=== PATIENT | male | born 1965 | race Asian ===

== ENCOUNTER → 2016-12-17 | Outpatient (CLI) | payer MEDICARE, OTHER ==
[~2016-12-17] MED LIST: E-Z-GAS II EFFERVESCENT PACKET (SODIUM BICARB./CITRIC ACID/SIMETHICONE) As Ordered ONE; E-Z-HD 98% w/w 340GM SUSP BTL As Ordered ONE; E-Z-PAQUE 96% w/w SUSP 176GM BTL As Ordered ONE
--- NOTE | 2016-12-17 15:40 | REP ---
ESOPHAGRAM AIR CONTRAST: The procedure was performed under the direct supervision of Dr. Russell. The images were reviewed with Dr. Russell. A single view PA chest x-ray is submitted as a front desk representative film. There is poor inspiration, otherwise there is no change compared to a previous chest x-ray performed on 10/17/2009. Liquid barium and gas producing granules were given in the erect position as well as liquid barium in the prone oblique positions in order to perform a double contrast esophagram examination. The oral and pharyngeal stages of deglutition are unremarkable. Esophageal transport is prompt and efficient and there is no esophagitis, stricture, mucosal ring, or hiatal hernia. The GE junction is patulous and there is gastroesophageal reflux demonstrated to the level of the thoracic inlet. IMPRESSION: The GE junction is patulous and there is gastroesophageal reflux demonstrated to the level of the thoracic inlet. Otherwise unremarkable double contrast esophagram examination. 49 seconds of fluoroscopic time was utilized for this procedure. Reviewed by DUTCH Cox 12/17/2016 03:56 PEdited and Signed by Yvan Russell MD 12/17/2016 05:28 P
== END ==
LOC: M RAD 09:06
PROVIDERS: ATTEND Physician Assistant Medical
DX: K21.9 Gastro-esophageal reflux disease without esophagitis (principal)

== ENCOUNTER 2017-10-25 07:52 | Day surgery (SDC) | payer OTHER ==
[2017-10-25] MEDS: LR 1,000 ML IV (08:00)
[2017-10-25] MEDS ORDERED: PROPOFOL 500 MG/50 ML VIAL As Ordered (08:48)
[2017-10-25] MEDS ORDERED: LIDOCAINE 2% INJ 100 MG/5 ML SDV (FOR ANES.) As Ordered (09:00)
[2017-10-25] MEDS ORDERED: fentaNYL 100 MCG/2 ML INJECTION (J3010) As Ordered (09:32)
== END 2017-10-25 11:29 | disposition home or self-care (01) ==
LOC: M OPP 07:52
DX: Z12.11 Encounter for screening for malignant neoplasm of colon (principal); D12.7 Benign neoplasm of rectosigmoid junction; K62.1 Rectal polyp; K57.30 Diverticulosis of large intestine without perforation or abscess without bleeding; Z83.71 Family history of colonic polyps; K21.9 Gastro-esophageal reflux disease without esophagitis; E78.00 Pure hypercholesterolemia, unspecified; E11.9 Type 2 diabetes mellitus without complications; R19.7 Diarrhea, unspecified; Z79.899 Other long term (current) drug therapy; Z87.891 Personal history of nicotine dependence
CPT/HCPCS: 45385

== ENCOUNTER 2020-06-06 12:45 | Inpatient (IN) | payer OTHER ==
[~2020-06-06] VITALS: Ht 162.6 cm; Wt 64.9 kg
[~2020-06-06 12:45] MED LIST changes: +ATOR40TA75 PO; +CLAR10CA3 PO; -E-Z-GAS II EFFERVESCENT PACKET (SODIUM BICARB./CITRIC ACID/SIMETHICONE) As Ordered ONE; -E-Z-HD 98% w/w 340GM SUSP BTL As Ordered ONE; -E-Z-PAQUE 96% w/w SUSP 176GM BTL As Ordered ONE
[2020-06-06] MEDS ORDERED: MORPHINE 2 MG/ML 1ML VIAL (J2270) IV ONE (13:45)
[2020-06-06] MEDS ORDERED: ONDANSETRON 4MG/2ML VIAL IV ONE (13:45)
[2020-06-06] MEDS ORDERED: PANTOPRAZOLE 40MG VIAL (C9113 PER 1) IV ONE (13:45)
[2020-06-06 13:49] LABS: BASO % 0.1 % (0.0-1.0); EOS # 0.1 10^3/uL (0.0-0.5); EOS % 0.6 % (0.0-3.0); HEMATOCRIT 49.7 % (42.0-52.0); LYMPH # 1.7 10^3/uL (1.5-5.0); LYMPH % 12.2 % (24.0-44.0); MEAN CORPUSCULAR HEMOGLOBIN 29.1 pg (27.0-33.0); MEAN CORPUSCULAR HGB CONC 32.2 g/dl (32.0-36.5); MEAN CORPUSCULAR VOLUME 90.5 fl (80.0-96.0); MONO # 1.4 10^3/uL (0.0-0.8); MONO % 9.8 % (0.0-5.0); NEUTROPHILS % 76.9 % (36.0-66.0); PLATELET COUNT, AUTOMATED 372 10^3/uL (150-450); RED BLOOD COUNT 5.49 10^6/uL (4.30-6.10); WHITE BLOOD COUNT 14.2 10^3/uL (4.0-10.0)
[2020-06-06 14:16] LABS: BLOOD UREA NITROGEN 15 MG/DL (7-18); CALCIUM LEVEL 9.1 MG/DL (8.5-10.1); CARBON DIOXIDE LEVEL 29 MEQ/L (21-32); CHLORIDE LEVEL 105 MEQ/L (98-107); CREATININE FOR GFR 0.95 MG/DL (0.70-1.30); GLOMERULAR FILTRATION RATE > 60.0 (>56); GLUCOSE, FASTING 100 MG/DL (70-100); POTASSIUM SERUM 4.3 MEQ/L (3.5-5.1); SODIUM LEVEL 138 MEQ/L (136-145)
[2020-06-06 14:17] LABS: ALBUMIN 3.9 GM/DL (3.2-5.2); ALT/SGPT 16 U/L (12-78); AMYLASE 108 U/L (25-115); BILIRUBIN,DIRECT 0.2 MG/DL (0.0-0.2); BILIRUBIN,TOTAL 0.8 MG/DL (0.2-1.0); CK-MB VALUE MASS < 1.0 NG/ML (<3.6); CPK CREATINE PHOSPHOKINASE 88 U/L (39-308); LIPASE 328 U/L (73-393); MB/CK RELATIVE INDEX 1.14 (< OR =4); TOTAL PROTEIN 7.1 GM/DL (6.4-8.2); TROPONIN I < 0.02 NG/ML (< 0.10)
--- NOTE | 2020-06-06 15:05 | REP ---
INDICATION: Abdominal Pain. COMPARISON: None. TECHNIQUE: Three views FINDINGS: Supine and upright views of the abdomen show the intestinal gas pattern to be nonspecific. Gas and stool is seen throughout the colon within the rectosigmoid region. A few gas-filled mildly dilated small bowel loops are present. The organ silhouettes insofar as delineated appear unremarkable. No abdominal calcific densities are seen within the abdomen or pelvis. The accompanying single frontal view of the chest shows no free subdiaphragmatic air, cardiomegaly, infiltrates or effusions. IMPRESSION: Nonspecific intestinal gas pattern. Ileus is suspected, however, early SBO cannot be ruled out. <Electronically signed by Jamshid Mosley > 06/06/20 [id number]
[2020-06-06] MEDS ORDERED: ISOVUE-370 76% 100ML VIAL As Ordered ONE (15:10)
--- NOTE | 2020-06-06 15:33 | REP ---
INDICATION: epigastric/ruq pain, r/o sbo, perforated ulcer. COMPARISON: Comparison CT study is from November 17, 2009.. TECHNIQUE: Helical scanning was acquired and 4 mm axial images are re-formatted. Coronal and sagittal MPR images were generated and reviewed. The contrast enhancement dose is 100 mL of intravenous Isovue 370. FINDINGS: Preliminary digital inspector tester sorter radiograph shows multiple air-filled borderline caliber small bowel loops in the central abdomen. Mild stool is seen in the proximal and distal colon. No colonic distention. Mild ileus pattern. Lung bases are essentially clear on axial images. There is mild diffuse fatty infiltration of the liver with air subtle fat sparing near the gallbladder. No focal liver lesion is seen. The gallbladder itself is distended measuring up to 9.8 cm in greatest diameter. Its wall is slightly thickened. No stone is visible by CT. There is subtle streakiness in the Evita cholecystic fat in the right upper quadrant adjacent to the gallbladder. Question cholecystitis. No abnormality is noted in the pancreas. There is a small descending duodenal diverticulum. The common bile duct is not dilated, 0.6 cm. Normal adrenal glands are seen. The kidneys enhance symmetrically and are morphologically intact. No retroperitoneal mass or adenopathy is observed. There is mild sigmoid colon diverticulosis without CT evidence of diverticulitis. A noninflamed appendix is visible medial and posterior to the cecum. There is calcific material in the lumen of the appendix consistent with an appendicular lith but no periappendiceal inflammation is seen. No free fluid is noted. Seminal vesicles, prostate and urinary bladder are unremarkable. No abdominal wall defect is seen. Bone window settings show no bony destructive lesion. There is a bilateral pars defect in the L5 vertebral body without evidence of spondylolisthesis. IMPRESSION: 1. Fatty infiltration of the liver. 2. Dilated gallbladder with gallbladder wall thickening and minimal Evita cholecystic edema question cholecystitis. 3. Left colonic diverticulosis without CT evidence of diverticulitis. 4. Mild ileus pattern in the bowel gas. No obstructive lesion seen. 5. Incidental finding bilateral pars interarticularis defects at L5 without spondylolisthesis. <Electronically signed by Logan Gómez > 06/06/20 [id number]
[2020-06-06] MEDS ORDERED: PIPERACILLIN/TAZOBACTAM SOD 3.375 GM in D5W MINI-BAG PLUS 50 ML IV ONE (15:45)
[2020-06-06] MEDS ORDERED: OMEP-221 PO (15:45)
[2020-06-06] MEDS ORDERED: FLUTISP NARES (15:52)
[2020-06-06] MEDS ORDERED: ONDANSETRON 4MG/2ML VIAL IV PRN (16:00)
[2020-06-06] MEDS: NS 1,000 ML IV SCH ×2 (16:03→23:59)
--- NOTE | 2020-06-06 16:19 | REP ---
INDICATION: RUQ, epigastric TTP. COMPARISON: Comparison CT1 study November 17, 2009.. TECHNIQUE: Right upper quadrant sonography. FINDINGS: Scanning through the right upper quadrant of the abdomen demonstrates a mildly dilated, 10 cm, thin-walled gallbladder without evidence of stone or polyp. Common bile duct is normal measuring 0.6 cm in greatest diameter. There is evidence of fatty infiltration of the liver with hypoechoic areas of fat sparing near the gallbladder. No focal liver lesion is seen. Liver size is normal. No pancreatic abnormality is observed. No right renal abnormality is seen. There is no evidence of ascites. The right kidney measures 10.5 x 5.5 x 4.4 cm. IMPRESSION: Evidence of fatty infiltration of the liver. Gallbladder mildly dilated. Otherwise negative right upper quadrant sonography.. <Electronically signed by Logan Gómez > 06/06/20 [id number]
--- NOTE | 2020-06-06 16:37 | HPEPDOC ---
[facility] Medical History & Physical Date of Admission Jun 06, 2020 Date of Service: Jun 06, 2020 Attending Physician: Karen Flores MD History and Physical CHIEF COMPLAINT: abdominal pain HISTORY OF PRESENT ILLNESS: Patient is a 55 y/o M with PMH Of GERD, HLD who presented to [facility] with chief complaint of worsening abdominal pain over the past 7 days. The patient speaks Czech and wished to have his friend on the phone to help translate during his bedside exam. Patient states that 7 days ago he developed acute epigastric and right upper quadrant pain. It initially was i ntermittent, 5 out of 10 on pain scale, sharp. Over the 7 days it continued to worsen. He had seen his primary care provider on 05/27/2020 and was prescribed omeprazole for what was thought to be acid reflux pain. He states the pain did not improve after taking omeprazole but instead it worsened. The patient denies nausea, vomiting, diarrhea, shortness of breath, chest pain, fevers, chills. Due to unrelenting and worsening pain the patient came to the emergency room today for further evaluation. In the emergency room, vital signs showed some mild tachycardia. WBC 14K, he had severe tenderness on epigastric palpation, + Howell's sign. CT abd/pelvis showed fatty infiltration of the liver, dilated gallbladder with gallbladder wall thickening and minimal Evita cholecystic edema question cholecystitis. left colonic diverticulosis without CT evidence of diverticulitis, mild ileus pattern in the bowel gas. No obstructive lesion seen. Last BM was several days ago. Surgery was called from ER and decision was made to admit under medicine service for acute cholecystitis and treat with antibiotics. REVIEW OF SYSTEMS: CONSTITUTIONAL: Denies lack of energy, unexplained weight gain or weight loss, loss of appetite, fever, night sweats EYES: Denies eye drainage, eye pain, visual changes, dry/irritated eye EARS, NOSE, MOUTH, THROAT: Denies difficulty hearing, ringing in ears, mouth sores, loose teeth, sore throat, facial numbness or pain NECK: Denies swollen glands CARDIOVASCULAR: Denies irregular heartbeat, racing heart, chest pains, swelling of feet or legs, pain in legs with walking RESPIRATORY: Denies shortness of breath, night sweats, wheezing, sputum production, oxygen at home, coughing up blood, cough lasting > 1 month GASTROINTESTINAL: Denies constipation, bloody stool, diarrhea, heartburn, nausea, vomiting GENITOURINARY: Denies painful urination, bloody urine, frequent urination, urgency, leaking urine, impotence MUSCULOSKELETAL: Denies joint pain, muscle pain, leg swelling INTEGUMENTARY: Denies rash, itching, new skin lesion, change in existing skin lesion, hair loss or increase, breast changes. NEUROLOGICAL: Denies headaches, dizziness, difficulty walking, numbness or tingling PSYCHIATRIC: Denies depression, anxiety, recurrent bad thoughts, mood swings, hallucinations PAST MEDICAL HISTORY: 1. GERD 2. HLD 3. Environmental allergies PAST SURGICAL HISTORY: 1. Nose surgery 2. Eye surgery FAMILY HISTORY: No significant family history SOCIAL HISTORY: Hx of tobacco use in past. Denies currently using tobacco products, alcohol or drug use. He is a full Code. ALLERGIES: Please see below. HOME MEDICATIONS: Please see below. PHYSICAL EXAMINATION: VS: Please see below CONSTITUTIONAL: Mild discomfort, AAO x 3 EYES: PERRLA, EOM intact HENT, MOUTH: Normocephalic, atraumatic, moist mucous membranes, NECK: SUPPLE, no JVD, no lymphadenopathy, no carotid bruit CV: Regular rate and rhythm, S1S2 normal, no murmurs/rubs/gallops RESPIRATORY: Clear to auscultation bilaterally, no rales/rhonchi/wheezes GI: + Howell's sign, epigastric pain on palpation, BS positive in 4 quadrants, soft, nondistended, no rebound or guarding, no organomegaly : Deferred MUSCULOSKELETAL: Normal ROM. No cyanosis, clubbing, swelling, joint deformity, extremity edema INTEGUMENTARY: Intact, no rashes, no lesions, no erythema NEUROLOGIC: Cranial Nerves II-XII are intact, no focal deficits PSYCHIATRIC: Mood and affect are normal LABORATORY DATA: Please see below IMAGING: CT abd/pelvis: 1. Fatty infiltration of the liver. 2. Dilated gallbladder with gallbladder wall thickening and minimal Evita cholecystic edema question cholecystitis. 3. Left colonic diverticulosis without CT evidence of diverticulitis. 4. Mild ileus pattern in the bowel gas. No obstructive lesion seen. 5. Incidental finding bilateral pars interarticularis defects at L5 without spondylolisthesis. ASSESSMENT: 55 y/o M with PMH Of GERD, HLD admitted for further treatment of acute cholecystitis. PLAN: #Acute cholecystitis -CT abd/pelvis above -WBC 14K, afebrile, tender in epigastric/RUQ -NPO, IVFs, pain control with toradol, morphine. -Surgery consulted to follow -F/u CMP in AM #HLD -Holding PO statin #GERD -IV PPI #DVT px -Enoxaparin DISPOSITION: Admitted for treatment above. Surgery consulted. Plan is discharge home when medically improved. Vital Signs Vital Signs Date Time Temp Pulse Resp B/P (MAP) Pulse Ox O2 Delivery O2 Flow Rate FiO2 06/06/20 15:42 98.9 97 18 138/96 (110) 99 Room Air Laboratory Data Labs 24H Laboratory Tests 2 06/06/20 13:39: Immature Granulocyte % (Auto) 0.4, Neutrophils (%) (Auto) 76.9H, Lymphocytes (%) (Auto) 12.2L, Monocytes (%) (Auto) 9.8H, Eosinophils (%) (Auto) 0.6, Basophils (%) (Auto) 0.1, Neutrophils # (Auto) 11.0H, Lymphocytes # (Auto) 1.7, Monocytes # (Auto) 1.4H, Eosinophils # (Auto) 0.1, Basophils # (Auto) 0.0, Nucleated Red Blood Cells % (auto) 0.0, Anion Gap 4L, Glomerular Filtration Rate > 60.0, Calcium Level 9.1, Total Bilirubin 0.8, Direct Bilirubin 0.2, Aspartate Amino Transf (AST/SGOT) 19, Alanine Aminotransferase (ALT/SGPT) 16, Alkaline Phosphatase 79, Total Creatine Kinase 88, Creatine Kinase MB < 1.0, Creatine Kinase MB Relative Index 1.14, Troponin I < 0.02, Total Protein 7.1, Albumin 3.9, Albumin/Globulin Ratio 1.2, Amylase Level 108, Lipase 328 06/06/20 14:16: Urine Color YELLOW, Urine Appearance CLEAR, Urine pH 5.0, Urine Specific [place] 1.021, Urine Protein NEGATIVE, Urine Glucose (UA) NEGATIVE, Urine Ketones NEGATIVE, Urine Blood NEGATIVE, Urine Nitrite NEGATIVE, Urine Bilirubin NEGATIVE, Urine Urobilinogen 0.2, Urine Leukocyte Esterase NEGATIVE, Urine WBC (Auto) 2, Urine RBC (Auto) 1, Urine Hyaline Casts (Auto) 0, Urine Bacteria (Auto) NEGATIVE, Urine Squamous Epithelial Cells 0, Urine Mucus (Auto) SMALL, Urine Sperm (Auto) CBC/BMP Laboratory Tests 06/06/20 13:39 Home Medications Scheduled Atorvastatin Calcium (Atorvastatin Calcium) 40 Mg Tab, 40 MG PO DAILY PRESCRIBED BY DR. FU BUT PT STATES NOT TAKING Omeprazole (Omeprazole) 40 Mg Capsule.dr, 40 MG PO DAILY Scheduled PRN Fluticasone Propionate (Fluticasone Propionate) 16 Gm [place].susp, 1 SPRAY NARES DAILY PRN for CONGESTION Loratadine (Claritin) 10 Mg Cap, 10 MG PO DAILY PRN for ALLERGY SYMPTOMS Allergies Uncoded Allergies: ANTIBIOTIC IN [facility] (Allergy, Severe, BLISTERS ON HANDS, 10/17/17) A-FIB/CHADSVASC A-FIB History Current/History of A-Fib/PAF?: No Current PO Anticoag Therapy: No Age/Risk Factor Scoring CHADSVASC: CHADSVASC Response (Comments) Value Age Risk Factor Age < 65 years old 0 Gender Risk Factor Male 0 Hx of CHF No 0 Hx of HTN No 0 Hx of Stroke/TIA/or VTE No 0 Hx of Diabetes No 0 Hx of Vascular Disease No 0 Total 0 Treatment Treatment ordered: Other Other anticoagulant ordered: enoxaparin Karen Flores MD Jun 06, 2020 16:37
[2020-06-06] MEDS: MORPHINE 2 MG/ML 1ML VIAL (J2270) IV PRN (18:38)
[2020-06-06 18:48] VITALS: BP 154/108
[2020-06-06] MEDS: KETOROLAC 30 MG/ML 1ML VIAL IV PRN (19:05)
[2020-06-06 19:57] VITALS: BP 118/75
[2020-06-06 22:00] VITALS: BP 115/75
[2020-06-06] MEDS: PIPERACILLIN/TAZOBACTAM SOD 3.375 GM in D5W MINI-BAG PLUS 50 ML IV SCH (23:59)
[2020-06-07] VITALS (10 sets, daily range): BP systolic 111–140; BP diastolic 73–99
[2020-06-07] MEDS: MORPHINE 2 MG/ML 1ML VIAL (J2270) IV PRN ×3 (00:40→22:35)
[2020-06-07] MEDS: PIPERACILLIN/TAZOBACTAM SOD 3.375 GM in D5W MINI-BAG PLUS 50 ML IV SCH ×4 (03:22→22:33)
[2020-06-07 05:55] LABS: HEMATOCRIT 41.3 % (42.0-52.0); MEAN CORPUSCULAR HGB CONC 33.2 g/dl (32.0-36.5); MEAN CORPUSCULAR VOLUME 90.6 fl (80.0-96.0); PLATELET COUNT, AUTOMATED 296 10^3/uL (150-450); RED BLOOD COUNT 4.56 10^6/uL (4.30-6.10); WHITE BLOOD COUNT 9.6 10^3/uL (4.0-10.0)
[2020-06-07 06:10] LABS: HEMOGLOBIN 13.7 g/dl (13.5-17.5)
[2020-06-07 06:34] LABS: ALBUMIN 2.9 GM/DL (3.2-5.2); ALT/SGPT 23 U/L (12-78); BLOOD UREA NITROGEN 11 MG/DL (7-18); CALCIUM LEVEL 8.7 MG/DL (8.5-10.1); CARBON DIOXIDE LEVEL 27 MEQ/L (21-32); CHLORIDE LEVEL 109 MEQ/L (98-107); CREATININE FOR GFR 0.94 MG/DL (0.70-1.30); GLOMERULAR FILTRATION RATE > 60.0 (>56); GLUCOSE, FASTING 99 MG/DL (70-100); POTASSIUM SERUM 3.8 MEQ/L (3.5-5.1); SODIUM LEVEL 140 MEQ/L (136-145); TOTAL PROTEIN 6.2 GM/DL (6.4-8.2)
--- NOTE | 2020-06-07 06:46 | ECGEPIP ---
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
[2020-06-07] MEDS ORDERED: MIDAZOLAM INJ 2MG/2ML VIAL (J2250 PER 1MG) As Ordered ONE (07:15)
[2020-06-07] MEDS ORDERED: ROCURONIUM BROMIDE 50 MG/5 ML VIAL As Ordered ONE ×2 (07:15→12:31)
[2020-06-07] MEDS ORDERED: LIDOCAINE 2% 100MG/5ML SDV (FOR ANES.) As Ordered ONE (07:15)
[2020-06-07] MEDS ORDERED: propofoL 200 MG/20 ML VIAL As Ordered ONE (07:15)
[2020-06-07] MEDS ORDERED: fentaNYL 250 MCG/5 ML INJECTION (J3010) As Ordered ONE (07:15)
[2020-06-07] MEDS ORDERED: KETOROLAC 60MG 2ML VIAL As Ordered ONE (07:16)
[2020-06-07] MEDS ORDERED: ONDANSETRON 4MG/2ML VIAL As Ordered ONE (07:16)
[2020-06-07] MEDS ORDERED: ACETAMINOPHEN 1000MG 100ML IV BTL (OFIRMEV) (J0131 PER 10MG) As Ordered ONE (07:16)
[2020-06-07] MEDS ORDERED: dexameTHASONE 4 MG/ML 1ML VIAL (J1100 PER 1MG) As Ordered ONE (07:16)
[2020-06-07] MEDS ORDERED: BUPIVACAINE HCL 0.25% 10ML VIAL As Ordered ONE (07:53)
[2020-06-07] MEDS ORDERED: LIDOCAINE 1% MDV 20ML VIAL As Ordered ONE (07:53)
[2020-06-07] MEDS: ENOXAPARIN 40MG/0.4ML SYRINGE (J1650 PER 10MG) SC SCH (09:00)
[2020-06-07] MEDS: NS 1,000 ML IV SCH ×3 (10:01→22:32)
--- NOTE | 2020-06-07 11:30 | CR.PDOC ---
General Surgery Consultation Date of Consultation 06/07/20 History and Physical CONSULT REPORT FOR: Dr. Flores (hospitalist service) REASON FOR CONSULTATION: abdominal pain HISTORY OF PRESENT ILLNESS: patient is a 55-year-old male who presented himself to the emergency room yesterday afternoon with complaints of 1 week history of epigastric pain with radiation to the right upper quadrant area with some associated nausea, increased reflux, minimal vomiting. He denies any fevers or chills. He reports he is been ongoing for 7 days but worse in the past day or so prompting his consult to the emergency room. About a month ago he was having the same symptoms and he was started on omeprazole which he has been taking all this time. During that time his symptoms resolved after about a week or so on this medication. He reports a history of ulcer. On review of [facility] he did have an endoscopy back in 2012 or that shows some gastritis. A repeat endoscopy in 2018 did not reveal any active disease in the esophagus, stomach, duodenum. Because of his history is hard to elicit due to him not being able to speak Spanish fluently. This history was taken with the help of the electronic certified court interpreter service. He reports along with the pain he seems to be describing symptoms of increased reflux worse with suite foods, not with salty foods and this improved with the omeprazole. As mentioned he has had an endoscopy and colonoscopy in 2018. His symptoms did not really bother him up until about a month ago and repeated again about this week. In the emergency room he had multiple imaging studies to look at the gallbladder. Initial ultrasound study was read as normal but the CT scan study shows some mild inflammation around the gallbladder though no stones were seen on ultrasound of the gallbladder. He had some mild leukocytosis but normal LFTs. His symptoms are more prominent over the epigastric area than on the right upper quadrant. Though there is some radiation of the discomfort on examination. He was noted to have positive sonographic Howell sign during ultrasound examination. All this points out the possible gallbladder etiology. He was started on IV antibiotics and this morning repeat labs shows normalization of his leukocytosis and still a normal LFT. I was asked to evaluate the patient for possibility that this is a gallbladder disease/chronic cholecystitis and need for cholecystectomy. PAST MEDICAL HISTORY: 1. hyperlipidemia 2. GERD PAST SURGICAL HISTORY: INCLUDES: 1. nose surgery 2. eye surgery 3. EGD/Colonoscopy (2018) ALLERGIES: Please see below. HOME MEDICATIONS: Please see below. REVIEW OF SYSTEMS: Denies any abnormal weight loss, fevers, chills. Reports esophageal reflux. Denies problem with vision or hearing, chest pains, shortness of breath. Denies dysuria, hematuria. EXAMINATION: looks comfortable anicteric sclerae no JVD Regular heart rate and rhythm Clear Breath sounds abdomen: nondistended, soft, tender at epigastric area with radiation to the ruq area, mild guarding more on the epigastric area than ruq area. Nontender over left side of abdomen. ANCILLARIES: LABORATORY DATA: Please see below. IMAGING STUDIES: GB US - no stones CT A/P - mild gb wall thickening, pericholecystic fluid IMPRESSION AND PLAN: Acute Cholecystitis Details of his history was hard to ascertain but it seems to be he may be having possibly 2 separate problems one is that of of dyspeptic type symptoms with reflux disease which seems to have improved with omeprazole. If symptoms clear whether the pain or discomfort he is having right now for about 7 days is similar to his previous ones. He denies dizziness when I asked him. He is most tender over the epigastric area. He does have some mild radiation over the right upper quadrant area. He has had at least 4 to past 2 years an EGD and colo noscopy which was normal. He had a prior EGD years ago that showed some mild gastritis so he must be having some symptoms as he has had this procedures done. Studies done in the emergency room shows a distended gallbladder but no stones were visualized on ultrasound, normal biliary tree. On CT which was done later there is now some mild pericholecystic edema which is more specific for acute cholecystitis. He did come in with mild leukocytosis. His LFTs were normal. Even the pain mostly is at the epigastric area, I had them repeat the LFTs today and this still is normal which can essentially rules out some lower biliary tract obstruction. His repeat labs shows normalization of the leukocytosis with the antibiotics which goes more for acute cholecystitis. I discussed with him his options which includes continued antibiotic therapy and consideration for interval cholecystectomy versus performing cholecystectomy during this admission and after explaining the differences, risks and benefits of each one he has agreed to undergo cholecystectomy during this admission. I discussed with the patient the details of the proposed procedure, the benefits of performing the procedure, the most common risks on doing the procedure. This may include risks of bleeding, infection, bile duct injury, bile leakage,. I have given him a chance to ask questions, voice out concerns. Patient has agreed to proceed Vital Signs Vital Signs Date Time Temp Pulse Resp B/P (MAP) Pulse Ox O2 Delivery O2 Flow Rate FiO2 06/07/20 10:01 16 06/07/20 06:00 98.5 88 111/73 (86) 96 Room Air I&Os I&O- Last 24 Hours up to 6 AM 06/07/20 06:00 Intake Total 1650 ml Output Total 150 ml Balance 1500 ml Laboratory Data Labs 24H Laboratory Tests 2 06/06/20 13:39: Immature Granulocyte % (Auto) 0.4, Neutrophils (%) (Auto) 76.9H, Lymphocytes (%) (Auto) 12.2L, Monocytes (%) (Auto) 9.8H, Eosinophils (%) (Auto) 0.6, Basophils (%) (Auto) 0.1, Neutrophils # (Auto) 11.0H, Lymphocytes # (Auto) 1.7, Monocytes # (Auto) 1.4H, Eosinophils # (Auto) 0.1, Basophils # (Auto) 0.0, Nucleated Red Blood Cells % (auto) 0.0, Anion Gap 4L, Glomerular Filtration Rate > 60.0, Calcium Level 9.1, Total Bilirubin 0.8, Direct Bilirubin 0.2, Aspartate Amino Transf (AST/SGOT) 19, Alanine Aminotransferase (ALT/SGPT) 16, Alkaline Phosphatase 79, Total Creatine Kinase 88, Creatine Kinase MB < 1.0, Creatine Kinase MB Relative Index 1.14, Troponin I < 0.02, Total Protein 7.1, Albumin 3.9, Albumin/Globulin Ratio 1.2, Amylase Level 108, Lipase 328 06/06/20 14:16: Urine Color YELLOW, Urine Appearance CLEAR, Urine pH 5.0, Urine Specific [place] 1.021, Urine Protein NEGATIVE, Urine Glucose (UA) NEGATIVE, Urine Ketones NEGATIVE, Urine Blood NEGATIVE, Urine Nitrite NEGATIVE, Urine Bilirubin NEGATIVE, Urine Urobilinogen 0.2, Urine Leukocyte Esterase NEGATIVE, Urine WBC (Auto) 2, Urine RBC (Auto) 1, Urine Hyaline Casts (Auto) 0, Urine Bacteria (Aut o) NEGATIVE, Urine Squamous Epithelial Cells 0, Urine Mucus (Auto) SMALL, Urine Sperm (Auto) 06/06/20 23:50: Coronavirus (COVID-19)(PCR) NEGATIVE 06/07/20 05:21: Nucleated Red Blood Cells % (auto) 0.0, Anion Gap 4L, Glomerular Filtration Rate > 60.0, Calcium Level 8.7, Total Bilirubin 1.0, Aspartate Amino Transf (AST/SGOT) 28, Alanine Aminotransferase (ALT/SGPT) 23, Alkaline Phosphatase 75, Total Protein 6.2L, Albumin 2.9#L, Albumin/Globulin Ratio 0.9 CBC/BMP Laboratory Tests 06/06/20 13:39 06/07/20 05:21 Home Medications Scheduled Atorvastatin Calcium (Atorvastatin Calcium) 40 Mg Tab, 40 MG PO DAILY, (Reported) PRESCRIBED BY DR. FU BUT PT STATES NOT TAKING Omeprazole (Omeprazole) 40 Mg Capsule.dr, 40 MG PO DAILY, (Reported) Scheduled PRN Fluticasone Propionate (Fluticasone Propionate) 16 Gm [place].susp, 1 SPRAY NARES DAILY PRN for CONGESTION, (Reported) Loratadine (Claritin) 10 Mg Cap, 10 MG PO DAILY PRN for ALLERGY SYMPTOMS, (Reported) Allergies Uncoded Allergies: ANTIBIOTIC IN [facility] (Allergy, Severe, BLISTERS ON HANDS, 10/17/17) NESTOR CONKLIN MD Jun 07, 2020 11:30
[2020-06-07] MEDS ORDERED: PHENYLephrine HCL 500 MCG/5 ML (100MCG/ML) SYRINGE (J2370) As Ordered ONE (12:03)
[2020-06-07] MEDS ORDERED: SUGAMMADEX SODIUM 500 MG/5 ML VIAL (BRIDION) As Ordered ONE (12:30)
[2020-06-07] MEDS ORDERED: FLUTICASONE PROP 0.05% NASAL SPRAY 16 GM (FLONASE) NARES PRN (14:00)
[2020-06-07] MEDS ORDERED: LORATADINE 10 MG TAB PO PRN (14:00)
[2020-06-07] MEDS ORDERED: fentaNYL 100 MCG/2 ML INJECTION (J3010) IV PRN (14:30)
[2020-06-07] MEDS ORDERED: oxyCODONE 5MG TAB PO PRN (14:30)
[2020-06-07] MEDS ORDERED: ONDANSETRON 4MG/2ML VIAL IV PRN (14:30)
[2020-06-07] MEDS ORDERED: HYDROMORPHONE HCL 0.5 MG/ 0.5 ML SYRINGE (J1170 PER 1) IV PRN (14:30)
[2020-06-07] MEDS ORDERED: LR 1,000 ML IV SCH (14:30)
[2020-06-07] MEDS ORDERED: METOCLOPRAMIDE INJ 10MG/2ML VIAL (J2765 PER 1) IV PRN (14:30)
[2020-06-07] MEDS: PANTOPRAZOLE 40MG VIAL (C9113 PER 1) IV SCH (15:09)
--- NOTE | 2020-06-07 17:08 | IPNPDOC ---
Date Seen The patient was seen on 06/07/20. Progress Note SUBJECTIVE: Continues to have epigastric/ruq pain. OR today for cholecystectomy. OBJECTIVE: PHYSICAL EXAMINATION: VS: Please see below CONSTITUTIONAL: resting in bed, AAO x 3 EYES: PERRLA, EOM intact HENT, MOUTH: Normocephalic, atraumatic, moist mucous membranes, NECK: SUPPLE, no JVD, no lymphadenopathy, no carotid bruit CV: Regular rate and rhythm, S1S2 normal, no murmurs/rubs/gallops RESPIRATORY: Clear to auscultation bilaterally, no rales/rhonchi/wheezes GI: + Howell's sign, epigastric pain on palpation, BS positive in 4 quadrants, soft, nondistended, no rebound or guarding, no organomegaly : Deferred MUSCULOSKELETAL: Normal ROM. No cyanosis, clubbing, swelling, joint deformity, extremity edema INTEGUMENTARY: Intact, no rashes, no lesions, no erythema NEUROLOGIC: Cranial Nerves II-XII are intact, no focal deficits PSYCHIATRIC: Mood and affect are normal LABORATORY DATA: Please see below IMAGING: CT abd/pelvis: 1. Fatty infiltration of the liver. 2. Dilated gallbladder with gallbladder wall thickening and minimal Evita cholecystic edema question cholecystitis. 3. Left colonic diverticulosis without CT evidence of diverticulitis. 4. Mild ileus pattern in the bowel gas. No obstructive lesion seen. 5. Incidental finding bilateral pars interarticularis defects at L5 without spondylolisthesis. ASSESSMENT: 55 y/o M with PMH Of GERD, HLD admitted for further treatment of acute cholecystitis. PLAN: #Acute cholecystitis -CT abd/pelvis above -WBC 9.6K, afebrile, tender in epigastric/RUQ -NPO, IVFs, pain control with toradol, morphine. -Surgery to take to OR today for cholecystectomy #HLD -Holding PO statin #GERD -IV PPI #DVT px -Enoxaparin DISPOSITION: OR today. Plan is discharge home when medically improved. VS, I&O, 24H, Fishbone Vital Signs/I&O Vital Signs Date Time Temp Pulse Resp B/P (MAP) Pulse Ox O2 Delivery O2 Flow Rate FiO2 06/07/20 16:38 98.6 114/78 (90) Room Air 06/07/20 15:40 88 16 95 I&O- Last 24 Hours up to 6 AM 06/07/20 06:00 Intake Total 1650 ml Output Total 150 ml Balance 1500 ml Laboratory Data 24H LABS Laboratory Tests 2 06/06/20 23:50: Coronavirus (COVID-19)(PCR) NEGATIVE 06/07/20 05:21: Nucleated Red Blood Cells % (auto) 0.0, Anion Gap 4L, Glomerular Filtration Rate > 60.0, Calcium Level 8.7, Total Bilirubin 1.0, Aspartate Amino Transf (AST/SGOT) 28, Alanine Aminotransferase (ALT/SGPT) 23, Alkaline Phosphatase 75, Total Protein 6.2L, Albumin 2.9#L, Albumin/Globulin Ratio 0.9 CBC/BMP Laboratory Tests 06/07/20 05:21 Current Medications Current Medications Medications (Trade) Dose Ordered Sig/Mauricio Route PRN Reason Start Time Stop Time Status Last Admin Dose Admin Atorvastatin Calcium (Lipitor) 40 mg DAILY PO 06/08/20 09:00 Enoxaparin Sodium (Lovenox) 40 mg DAILY SC 06/07/20 09:00 Fentanyl Citrate (Sublimaze) 25 mcg Q5MP PRN IV PAIN LEVEL 5-10 06/07/20 14:30 06/07/20 15:30 DC Fluticasone Propionate (Flonase 0.05% Nasal [place]) 1 spray DAILY PRN NARES CONGESTION 06/07/20 14:00 Home Med (Med Rec Complete!) ASDIRECTED XX 06/06/20 16:30 06/06/20 16:27 DC Hydromorphone HCl (Dilaudid) 0.4 mg Q5MP PRN IV PAIN LEVEL 4-7 06/07/20 14:30 06/07/20 15:30 DC Influenza Virus Vaccine (Flublok Quad(Egg-Free)18y&Older Influenza) 0.5 ml ASDIRECTED IM 06/08/20 09:00 Ketorolac Tromethamine (ToRADol) 15 mg Q6H PRN IV PAIN 06/06/20 16:00 06/11/20 15:59 06/06/20 19:05 Lactated Ringer's 1,000 ml @ 100 mls/hr Q10H IV 06/07/20 14:30 06/07/20 15:30 DC Loratadine (Claritin) 10 mg DAILY PRN PO ALLERGY SYMPTOMS 06/07/20 14:00 Metoclopramide HCl (REGLAN INJection) 10 mg Q6HP PRN IV NAUSEA OR VOMITING 06/07/20 14:30 06/07/20 15:30 DC Morphine Sulfate (Morphine Sulfate Inj) 1 mg Q6H PRN IV SEVERE PAIN (PS 8-10) 06/06/20 16:00 06/07/20 10:01 Ondansetron HCl (ZOFRAN INJection) 4 mg Q4HP PRN IV NAUSEA OR VOMITING 06/06/20 16:00 Ondansetron HCl (ZOFRAN INJection) 4 mg Q4HP PRN IV NAUSEA OR VOMITING 06/07/20 14:30 06/07/20 15:30 DC Oxycodone HCl (Roxicodone, Oxyir) 5 mg ASDIRECTED PRN PO PAIN LEVEL 1-4 06/07/20 14:30 06/07/20 15:30 DC Pantoprazole Sodium (Protonix) 40 mg Q24H IV 06/07/20 14:00 06/07/20 15:09 Piperacillin Sod/ Tazobactam Sod 3.375 gm/Dextrose 50 ml @ 50 mls/hr Q6H IV 06/06/20 22:00 06/07/20 16:23 Sodium Chloride 1,000 ml @ 125 mls/hr Q8H IV 06/06/20 15:50 06/07/20 16:24 Allergies Uncoded Allergies: ANTIBIOTIC IN [facility] (Allergy, Severe, BLISTERS ON HANDS, 10/17/17) Karen Flores MD Jun 07, 2020 17:08
[2020-06-07] MEDS: KETOROLAC 30 MG/ML 1ML VIAL IV PRN (18:36)
[2020-06-07] MEDS ORDERED: PERCOCET 5MG/325MG TAB PO PRN (23:30)
[2020-06-07] MEDS: ACETAMINOPHEN TAB 650MG DOSE (2X325MG) PO PRN (23:52)
[2020-06-08] MEDS: PERCOCET 5MG/325MG TAB PO PRN ×2 (00:07→08:37)
[2020-06-08] MEDS: PIPERACILLIN/TAZOBACTAM SOD 3.375 GM in D5W MINI-BAG PLUS 50 ML IV SCH ×4 (03:59→21:45)
[2020-06-08 06:00] VITALS: BP 104/74
[2020-06-08 07:06] LABS: HEMATOCRIT 37.7 % (42.0-52.0); HEMOGLOBIN 12.3 g/dl (13.5-17.5); MEAN CORPUSCULAR HEMOGLOBIN 29.4 pg (27.0-33.0); MEAN CORPUSCULAR HGB CONC 32.6 g/dl (32.0-36.5); MEAN CORPUSCULAR VOLUME 90.2 fl (80.0-96.0); PLATELET COUNT, AUTOMATED 252 10^3/uL (150-450); RED BLOOD COUNT 4.18 10^6/uL (4.30-6.10); WHITE BLOOD COUNT 9.5 10^3/uL (4.0-10.0)
[2020-06-08 07:37] LABS: ALBUMIN 2.5 GM/DL (3.2-5.2); ALT/SGPT 45 U/L (12-78); BLOOD UREA NITROGEN 10 MG/DL (7-18); CALCIUM LEVEL 7.5 MG/DL (8.5-10.1); CARBON DIOXIDE LEVEL 25 MEQ/L (21-32); CHLORIDE LEVEL 109 MEQ/L (98-107); CREATININE FOR GFR 0.87 MG/DL (0.70-1.30); GLOMERULAR FILTRATION RATE > 60.0 (>56); GLUCOSE, FASTING 90 MG/DL (70-100); POTASSIUM SERUM 3.8 MEQ/L (3.5-5.1); SODIUM LEVEL 141 MEQ/L (136-145)
[2020-06-08] MEDS: NS 1,000 ML IV SCH (08:32)
[2020-06-08] MEDS: ATORVASTATIN 20 MG TAB PO SCH (08:33)
[2020-06-08] MEDS: ENOXAPARIN 40MG/0.4ML SYRINGE (J1650 PER 10MG) SC SCH (08:33)
[2020-06-08] MEDS ORDERED: FLUBLOK(EGG FREE)(QUAD)INFLUENZA VACC 0.5ML SYRINGE 18YRS & OLDER IM SCH (09:00)
[2020-06-08 10:00] VITALS: BP 101/68
[2020-06-08 14:00] VITALS: BP 101/70
[2020-06-08] MEDS: PANTOPRAZOLE 40MG VIAL (C9113 PER 1) IV SCH (14:14)
[2020-06-08] MEDS: ACETAMINOPHEN TAB 650MG DOSE (2X325MG) PO PRN ×2 (15:46→21:51)
--- NOTE | 2020-06-08 16:02 | IPNPDOC ---
Date Seen The patient was seen on 06/08/20. Progress Note SUBJECTIVE: POD 1 for cholecystectomy. Mod epigastric/ruq pain controlled with pain medication. Spiked fever overnight of 100.5-102.5, has been afebrile throughout day today. Blood cultures ordered, encouraged to use IS Q2H while awake. Denies incr SOB, fevers, chills, n/v/d. Tolerating diet well. OBJECTIVE: PHYSICAL EXAMINATION: VS: Please see below CONSTITUTIONAL: resting in bed, AAO x 3 EYES: PERRLA, EOM intact HENT, MOUTH: Normocephalic, atraumatic, moist mucous membranes, NECK: SUPPLE, no JVD, no lymphadenopathy, no carotid bruit CV: Regular rate and rhythm, S1S2 normal, no murmurs/rubs/gallops RESPIRATORY: Clear to auscultation bilaterally, no rales/rhonchi/wheezes GI: Multiple clean incisions of the abdomen, no increased erythema. Diffuse tenderness, mod (5/10 on pain scale), BS positive in 4 quadrants, soft, nondistended, no rebound or guarding, no organomegaly : Deferred MUSCULOSKELETAL: Normal ROM. No cyanosis, clubbing, swelling, joint deformity, extremity edema INTEGUMENTARY: Intact, no rashes, no lesions, no erythema NEUROLOGIC: Cranial Nerves II-XII are intact, no focal deficits PSYCHIATRIC: Mood and affect are normal LABORATORY DATA: Please see below IMAGING: CT abd/pelvis: 1. Fatty infiltration of the liver. 2. Dilated gallbladder with gallbladder wall thickening and minimal Evita cholecystic edema question cholecystitis. 3. Left colonic diverticulosis without CT evidence of diverticulitis. 4. Mild ileus pattern in the bowel gas. No obstructive lesion seen. 5. Incidental finding bilateral pars interarticularis defects at L5 without spondylolisthesis. ASSESSMENT: 55 y/o M with PMH Of GERD, HLD admitted for further treatment of acute cholecystitis. PLAN: #Acute cholecystitis -POD day 1 cholecystectomy -Fevers overnight, blood cultures pending. Cannot r/o atelectasis also postop, IS ordered -WBC wnl, tender in abdomen -F/u blood cultures -Tolerating regular diet, pain control with toradol, morphine, NS at 100 cc/hr, zosyn IV -Surgery following #HLD -C/w PO statin #GERD - PPI #DVT px -Enoxaparin DISPOSITION: Plan is discharge home when medically improved. VS, I&O, 24H, Fishbone Vital Signs/I&O Vital Signs Date Time Temp Pulse Resp B/P (MAP) Pulse Ox O2 Delivery O2 Flow Rate FiO2 06/08/20 14:00 98.0 107 19 101/70 (80) 98 Room Air I&O- Last 24 Hours up to 6 AM 06/08/20 06:00 Intake Total 3680 ml Output Total 735 ml Balance 2945 ml Laboratory Data 24H LABS Laboratory Tests 2 06/08/20 06:50: Nucleated Red Blood Cells % (auto) 0.0, Anion Gap 7L, Glomerular Filtration Rate > 60.0, Calcium Level 7.5L, Total Bilirubin 1.0, Aspartate Amino Transf (AST/SGOT) 49H, Alanine Aminotransferase (ALT/SGPT) 45, Alkaline Phosphatase 97, Total Protein 5.0L, Albumin 2.5L, Albumin/Globulin Ratio 1.0 CBC/BMP Laboratory Tests 06/08/20 06:50 Current Medications Current Medications Medications (Trade) Dose Ordered Sig/Mauricio Route PRN Reason Start Time Stop Time Status Last Admin Dose Admin Acetaminophen (Tylenol Tab) 650 mg Q4HP PRN PO PAIN OR FEVER 06/07/20 23:30 06/08/20 15:46 Atorvastatin Calcium (Lipitor) 40 mg DAILY PO 06/08/20 09:00 06/08/20 08:33 Enoxaparin Sodium (Lovenox) 40 mg DAILY SC 06/07/20 09:00 06/08/20 08:33 Fentanyl Citrate (Sublimaze) 25 mcg Q5MP PRN IV PAIN LEVEL 5-10 06/07/20 14:30 06/07/20 15:30 DC Fluticasone Propionate (Flonase 0.05% Nasal [place]) 1 spray DAILY PRN NARES CONGESTION 06/07/20 14:00 Home Med (Med Rec Complete!) ASDIRECTED XX 06/06/20 16:30 06/06/20 16:27 DC Hydromorphone HCl (Dilaudid) 0.4 mg Q5MP PRN IV PAIN LEVEL 4-7 06/07/20 14:30 06/07/20 15:30 DC Influenza Virus Vaccine (Flublok Quad(Egg-Free)18y&Older Influenza) 0.5 ml ASDIRECTED IM 06/08/20 09:00 06/08/20 08:39 Ketorolac Tromethamine (ToRADol) 15 mg Q6H PRN IV PAIN 06/06/20 16:00 06/11/20 15:59 06/07/20 18:36 Lactated Ringer's 1,000 ml @ 100 mls/hr Q10H IV 06/07/20 14:30 06/07/20 15:30 DC Loratadine (Claritin) 10 mg DAILY PRN PO ALLERGY SYMPTOMS 06/07/20 14:00 Metoclopramide HCl (REGLAN INJection) 10 mg Q6HP PRN IV NAUSEA OR VOMITING 06/07/20 14:30 06/07/20 15:30 DC Morphine Sulfate (Morphine Sulfate Inj) 1 mg Q6H PRN IV SEVERE PAIN (PS 8-10) 06/06/20 16:00 06/07/20 22:35 Ondansetron HCl (ZOFRAN INJection) 4 mg Q4HP PRN IV NAUSEA OR VOMITING 06/06/20 16:00 Ondansetron HCl (ZOFRAN INJection) 4 mg Q4HP PRN IV NAUSEA OR VOMITING 06/07/20 14:30 06/07/20 15:30 DC Oxycodone HCl (Roxicodone, Oxyir) 5 mg ASDIRECTED PRN PO PAIN LEVEL 1-4 06/07/20 14:30 06/07/20 15:30 DC Oxycodone/ Acetaminophen (Percocet 5mg/ 325mg Tablet) 1 tab Q4HP PRN PO MODERATE PAIN (PS 5-7) 06/07/20 23:30 06/08/20 08:37 Oxycodone/ Acetaminophen (Percocet 5mg/ 325mg Tablet) 2 tab Q6HP PRN PO SEVERE PAIN (PS 8-10) 06/07/20 23:30 Pantoprazole Sodium (Protonix) 40 mg Q24H IV 06/07/20 14:00 06/08/20 14:14 Piperacillin Sod/ Tazobactam Sod 3.375 gm/Dextrose 50 ml @ 50 mls/hr Q6H IV 06/06/20 22:00 06/08/20 15:52 Sodium Chloride 1,000 ml @ 125 mls/hr Q8H IV 06/06/20 15:50 12/6/20 08:32 Allergies Uncoded Allergies: ANTIBIOTIC IN [facility] (Allergy, Severe, BLISTERS ON HANDS, 10/17/17) Karen Flores MD Jun 08, 2020 16:02
[2020-06-08] MEDS: MAALOX 30 ML SUSP *UDC PO PRN (21:44)
[2020-06-08 22:00] VITALS: BP 142/90
[2020-06-09] MEDS: PIPERACILLIN/TAZOBACTAM SOD 3.375 GM in D5W MINI-BAG PLUS 50 ML IV SCH ×4 (04:21→21:43)
[2020-06-09 05:58] LABS: HEMATOCRIT 37.4 % (42.0-52.0); HEMOGLOBIN 12.3 g/dl (13.5-17.5); MEAN CORPUSCULAR HEMOGLOBIN 29.4 pg (27.0-33.0); MEAN CORPUSCULAR HGB CONC 32.9 g/dl (32.0-36.5); MEAN CORPUSCULAR VOLUME 89.3 fl (80.0-96.0); PLATELET COUNT, AUTOMATED 242 10^3/uL (150-450); RED BLOOD COUNT 4.19 10^6/uL (4.30-6.10); WHITE BLOOD COUNT 8.5 10^3/uL (4.0-10.0)
[2020-06-09 06:00] VITALS: BP 130/90
[2020-06-09 06:29] LABS: ALBUMIN 2.4 GM/DL (3.2-5.2); ALT/SGPT 32 U/L (12-78); BILIRUBIN,TOTAL 0.7 MG/DL (0.2-1.0); BLOOD UREA NITROGEN 6 MG/DL (7-18); CALCIUM LEVEL 8.6 MG/DL (8.5-10.1); CARBON DIOXIDE LEVEL 26 MEQ/L (21-32); CHLORIDE LEVEL 107 MEQ/L (98-107); CREATININE FOR GFR 0.81 MG/DL (0.70-1.30); GLOMERULAR FILTRATION RATE > 60.0 (>56); GLUCOSE, FASTING 99 MG/DL (70-100); POTASSIUM SERUM 3.4 MEQ/L (3.5-5.1); SODIUM LEVEL 138 MEQ/L (136-145)
[2020-06-09] MEDS: OMEPRAZOLE 20 MG CAP PO SCH (09:08)
[2020-06-09] MEDS: ENOXAPARIN 40MG/0.4ML SYRINGE (J1650 PER 10MG) SC SCH (09:08)
[2020-06-09] MEDS: ATORVASTATIN 20 MG TAB PO SCH (09:08)
--- NOTE | 2020-06-09 12:32 | ROOPDOC ---
[facility] Report Of Operation Report of Operation DATE OF PROCEDURE: 06/07/20 PREPROCEDURE DIAGNOSES: acute cholecystitis. POSTPROCEDURE DIAGNOSES: acute cholecystitis. PROCEDURE: Robotic assisted laparoscopic cholecystectomy. SURGEON: Nestor Neville MD MACHINE TANK OPERATOR: ANESTHESIA: General Anesthesia. ESTIMATED BLOOD LOSS: Approximately 10 mL. COMPLICATIONS: none. REMARKS: Tensely distended, inotropic gallbladder with thickened gallbladder wall, pericholecystic wall edema consistent with acute over chronic cholecystitis.. SPECIMEN: gallbladder DESCRIPTION OF PROCEDURE: Patient is receiving zosyn 3.375 gm IV q 6h for acute cholecystitis. He was brought to the operating room, laid supine on the table, compression boots placed for DVT prophylaxis. General endotracheal anesthesia started. His abdomen then prepped and draped in usual sterile fashion. Surgical timeout was performed prior to confirm right procedure, right patient identification and other necessary information prior to starting surgery. Entry into the abdomen done through an incision aslightly to the left of the umbilical cleft. A Veress needle was inserted with a controlled fashion. CO2 insufflation started to pressure 15 mmHg. Using the same incision an 8 mm robotic trochar was placed under direct vision laparoscope. The area underneath the insertion site was inspected and no injury found. He was then placed in steep reverse Trendelenburg. His right side was tilted up to further expose the gallbladder. Under direct vision 3 more 8 mm trochars were placed along a row at level to the camera port site at the anterior axillary line, right midclavicular line and left mid clavicular line. A transversus abdominis plane block was then performed bilaterally using the lidocaine/marcaine mixture under laparoscopic guidance. The da Dharmesh robot tower was then maneuvered in place and the trochar ds docked to the robot. I used a prograsp, forced bipolar, and hook cautery for the procedure with a 30 robotic camera. I unscrubbed and assumed control of the camera and instruments at the surgeon's console. Operative findings: His liver is noted to be smooth in contour, mildly fatty replaced. The gallbladder was tensely distended which needed to be decompressed. Mucoid nonb ilious fluid was aspirated consistent with hydrops of the gallbladder. Moderate acute pericholecystic wall edema is noted. The gallbladder seems to be chronically thickened consistent with chronic cholecystitis. The omental adhesions were lysed with cautery to expose the gallbladder. The fundus of the gallbladder was grasped and the gallbladder is elevated superiorly exposing the neck of the gallbladder. The peritoneum overlying the area is opened up and dissected free both anteriorly and posteriorly to help with retraction of the gallbladder. The hepatocystic lymph node was visualized and I was able to peel this away from the course of the cystic artery. The course of the cystic artery was likewise identified and was able to peel this off the wall of the gallbladder creating a window around it. I was then able to continue the posterior dissection rectal polyp at the neck of the gallbladder connecting both my medial and lateral dissection. This allowed me to get around the cystic duct as it exits the infundibulum of the gallbladder. I continued the circumferential dissection inferiorly. I was palpating at the cystic duct as this seems to be somewhat distended but I could not feel any stones lodged at the neck nor at the cystic duct. I continued posterior dissection proximally at the neck of gallbladder to dissect the posterior wall of the gallbladder off the liver plate until a critical view of safety was achieved whereby only the previously identified duct and artery coursing through the neck the gallbladde r(photodocumentation done.) At this point the the cystic artery was most accessible and this was clipped 2 times and divided in between the hemlock clips. After again checking his anatomy and verifying no stones within the cystic duct and its junction with the gallbladder I divided this with 2 clips remaining at the cystic duct stump, one at the gb side.. The rest of the gallbladder was then dissected free of the gallbladder bed using Bovie cautery. There is a small posterior branch of the cystic artery laterally that I had to cauterize. I had spillage of this mucoid contents as I was dissecting the gallbladder at about the infundibulum. There were no stone spillage in fact I did not see any big stones within the gallbladder. The gallbladder was then placed in an Endo Catch bag and retrieved outside through the right axillary port site with partial enlargement of the port site by my printer assistant to accomodate the gallbladder. The clips and liver bed was inspected for bleeding and bile leakage and none found. I thoroughly irrigated the gallbladder bed as well as around the liver until we had clear returns. I scrubbed back in, extracted the gallbladder and close to the right axillary port site using a Rafi Lundberg device with 0 Vicryl stitch. The abdomen was deflated, The trochars undocked, the robot removed from the field. Rest of the skin incisions closed with 4-0 Monocryl in subcuticular fashion. Dermabond placed to cover the incisions.. Patient was awakened, extubated and brought to recovery room stable. . NESTOR NEVILLE MD Jun 09, 2020 12:32
[2020-06-09 14:00] VITALS: BP 130/95
--- NOTE | 2020-06-09 18:03 | IPNPDOC ---
Date Seen The patient was seen on 06/09/20. Progress Note SUBJECTIVE: POD 2 for cholecystectomy. Mod epigastric pain controlled with pain medication. Spiked fevers again overnight of overnight of 100.1-100.7. Has been afebrile throughout day today. Blood culture x 1 NG; however, second set pending. Encouraged to use IS Q2H while awake. Denies incr SOB, fevers, chills, n/v/d. Tolerating diet well. OBJECTIVE: PHYSICAL EXAMINATION: VS: Please see below CONSTITUTIONAL: resting in bed, AAO x 3 EYES: PERRLA, EOM intact HENT, MOUTH: Normocephalic, atraumatic, moist mucous membranes, NECK: SUPPLE, no JVD, no lymphadenopathy, no carotid bruit CV: Regular rate and rhythm, S1S2 normal, no murmurs/rubs/gallops RESPIRATORY: Clear to auscultation bilaterally, no rales/rhonchi/wheezes GI: Multiple clean incisions of the abdomen, no increased erythema. Tenderness over epigastric area mod (5/10 on pain scale), BS positive in 4 quadrants, soft, nondistended, no rebound or guarding, no organomegaly : Deferred MUSCULOSKELETAL: Normal ROM. No cyanosis, clubbing, swelling, joint deformity, extremity edema INTEGUMENTARY: Intact, no rashes, no lesions, no erythema NEUROLOGIC: Cranial Nerves II-XII are intact, no focal deficits PSYCHIATRIC: Mood and affect are normal LABORATORY DATA: Please see below IMAGING: CT abd/pelvis: 1. Fatty infiltration of the liver. 2. Dilated gallbladder with gallbladder wall thickening and minimal Evita cho lecystic edema question cholecystitis. 3. Left colonic diverticulosis without CT evidence of diverticulitis. 4. Mild ileus pattern in the bowel gas. No obstructive lesion seen. 5. Incidental finding bilateral pars interarticularis defects at L5 without spondylolisthesis. ASSESSMENT: 55 y/o M with PMH Of GERD, HLD admitted for further treatment of acute cholecystitis. PLAN: #Acute cholecystitis -POD day 2 cholecystectomy -Fevers overnight again, cannot r/o atelectasis also postop, IS ordered -WBC wnl, tender in epigastric area -BCx x 1 set NG, second set pending -Tolerating regular diet, pain control with toradol, morphine, zosyn IV -Surgery (Dr. Neville) following #HLD -C/w PO statin #GERD - PPI #DVT px -Enoxaparin DISPOSITION: Plan is discharge home when medically improved. Patient's brother, Kvng, would like to be called for update prior to discharge if possible . He helps translate for patient also. VS, I&O, 24H, Fishbone Vital Signs/I&O Vital Signs Date Time Temp Pulse Resp B/P (MAP) Pulse Ox O2 Delivery O2 Flow Rate FiO2 06/09/20 14:00 98.5 101 18 130/95 (107) 95 Room Air I&O- Last 24 Hours up to 6 AM 06/09/20 06:00 Intake Total 1880 ml Output Total 600 ml Balance 1280 ml Laboratory Data 24H LABS Laboratory Tests 2 06/09/20 05:39: Nucleated Red Blood Cells % (auto) 0.0, Anion Gap 5L, Glomerular Filtration Rate > 60.0, Calcium Level 8.6, Total Bilirubin 0.7, Aspartate Amino Transf (AST/SGOT) 24, Alanine Aminotransferase (ALT/SGPT) 32, Alkaline Phosphatase 89, Total Protein 6.0L, Albumin 2.4L, Albumin/Globulin Ratio 0.7 CBC/BMP Laboratory Tests 06/09/20 05:39 Microbiology Microbiology 06/08/20 Blood Culture, Received Pending 06/08/20 Blood Culture - Preliminary, Resulted No growth after 24 hours . All specim... Current Medications Current Medications Medications (Trade) Dose Ordered Sig/Mauricio Route PRN Reason Start Time Stop Time Status Last Admin Dose Admin Acetaminophen (Tylenol Tab) 650 mg Q4HP PRN PO PAIN OR FEVER 06/07/20 23:30 06/08/20 21:51 Al Hydrox/Mg Hydrox/Simethicone (Mylanta) 30 ml Q6HP PRN PO HEARTBURN 06/08/20 20:15 06/08/20 21:44 Atorvastatin Calcium (Lipitor) 40 mg DAILY PO 06/08/20 09:00 06/09/20 09:08 Enoxaparin Sodium (Lovenox) 40 mg DAILY SC 06/07/20 09:00 06/09/20 09:08 Fentanyl Citrate (Sublimaze) 25 mcg Q5MP PRN IV PAIN LEVEL 5-10 06/07/20 14:30 06/07/20 15:30 DC Fluticasone Propionate (Flonase 0.05% Nasal [place]) 1 spray DAILY PRN NARES CONGESTION 06/07/20 14:00 Home Med (Med Rec Complete!) ASDIRECTED XX 06/06/20 16:30 06/06/20 16:27 DC Hydromorphone HCl (Dilaudid) 0.4 mg Q5MP PRN IV PAIN LEVEL 4-7 06/07/20 14:30 06/07/20 15:30 DC Influenza Virus Vaccine (Flublok Quad(Egg-Free)18y&Older Influenza) 0.5 ml ASDIRECTED IM 06/08/20 09:00 06/08/20 08:39 Ketorolac Tromethamine (ToRADol) 15 mg Q6H PRN IV PAIN 06/06/20 16:00 06/11/20 15:59 06/07/20 18:36 Lactated Ringer's 1,000 ml @ 100 mls/hr Q10H IV 06/07/20 14:30 06/07/20 15:30 DC Loratadine (Claritin) 10 mg DAILY PRN PO ALLERGY SYMPTOMS 06/07/20 14:00 Metoclopramide HCl (REGLAN INJection) 10 mg Q6HP PRN IV NAUSEA OR VOMITING 06/07/20 14:30 06/07/20 15:30 DC Morphine Sulfate (Morphine Sulfate Inj) 1 mg Q6H PRN IV SEVERE PAIN (PS 8-10) 06/06/20 16:00 06/07/20 22:35 Omeprazole (PriLOSEC) 40 mg DAILY PO 06/09/20 09:00 06/09/20 09:08 Ondansetron HCl (ZOFRAN INJection) 4 mg Q4HP PRN IV NAUSEA OR VOMITING 06/06/20 16:00 Ondansetron HCl (ZOFRAN INJection) 4 mg Q4HP PRN IV NAUSEA OR VOMITING 06/07/20 14:30 06/07/20 15:30 DC Oxycodone HCl (Roxicodone, Oxyir) 5 mg ASDIRECTED PRN PO PAIN LEVEL 1-4 06/07/20 14:30 06/07/20 15:30 DC Oxycodone/ Acetaminophen (Percocet 5mg/ 325mg Tablet) 1 tab Q4HP PRN PO MODERATE PAIN (PS 5-7) 06/07/20 23:30 06/08/20 08:37 Oxycodone/ Acetaminophen (Percocet 5mg/ 325mg Tablet) 2 tab Q6HP PRN PO SEVERE PAIN (PS 8-10) 06/07/20 23:30 Pantoprazole Sodium (Protonix) 40 mg Q24H IV 06/07/20 14:00 06/08/20 16:04 DC 06/08/20 14:14 Piperacillin Sod/ Tazobactam Sod 3.375 gm/Dextrose 50 ml @ 50 mls/hr Q6H IV 06/06/20 22:00 06/09/20 16:36 Sodium Chloride 1,000 ml @ 125 mls/hr Q8H IV 06/06/20 15:50 06/08/20 16:14 DC 06/08/20 08:32 Allergies Uncoded Allergies: ANTIBIOTIC IN [facility] (Allergy, Severe, BLISTERS ON HANDS, 10/17/17) Karen Flores MD Jun 09, 2020 18:03
[2020-06-09] MEDS ORDERED: RAMELTEON 8 MG TAB (ROZEREM) PO PRN (21:00)
[2020-06-09 22:00] VITALS: BP 119/98
[2020-06-10] MEDS: PIPERACILLIN/TAZOBACTAM SOD 3.375 GM in D5W MINI-BAG PLUS 50 ML IV SCH ×4 (03:35→23:05)
[2020-06-10 06:00] VITALS: BP 117/95
[2020-06-10 07:44] LABS: HEMOGLOBIN 13.2 g/dl (13.5-17.5); MEAN CORPUSCULAR HEMOGLOBIN 29.5 pg (27.0-33.0); MEAN CORPUSCULAR VOLUME 89.5 fl (80.0-96.0); PLATELET COUNT, AUTOMATED 287 10^3/uL (150-450); RED BLOOD COUNT 4.47 10^6/uL (4.30-6.10)
--- NOTE | 2020-06-10 07:50 | IPNPDOC ---
Text Note Date of Service The patient was seen on 06/09/20. NOTE Patient seen and examined. Lays flat on the bed. Reports pain about 3 out of 10 mainly at the epigastric area. He is tolerating regular food without nausea or vomiting. He still has some intermittent low-grade fever. On examination Patient looks comfortable, in no acute distress Skin is warm and dry. No signs of jaundice Anicteric sclerae lips appear moist Lung sounds are clear to auscultation bilaterally, no wheezing Heart rate and rhythm are regular without murmurs. Abdomen is minimally distended, slightly tympanitic to percussion. He still has some persistent mild point tenderness over the epigastric area, nondistended right upper quadrant area. Port sites are clean dry and intact. The right side anterior axillary port site which is extraction site has mild swelling, signs of hematoma, no active drainage. This area is also mildly tender on palpation. Impression and plan Acute cholecystitis status post laparoscopic cholecystectomy. He is postop day 2. He does not have any leukocytosis. His LFTs are normal. He has this persistent tenderness over the epigastric area which I could not fully explain. He also has some low-grade intermittent fever. Continued antibiotics. If he develops leukocytosis or his fever persist, I suggest repeating a CT to look for any undrained collection which may be precipitating the fever. If that is negative may need to look for other sources of fever including repeat of the Covid test. VS,Fishbone, I+O VS, Fishbone, I+O Laboratory Tests 06/10/20 06:35 Vital Signs Date Time Temp Pulse Resp B/P (MAP) Pulse Ox O2 Delivery O2 Flow Rate FiO2 06/10/20 06:00 98.6 85 20 117/95 (102) 95 06/09/20 14:00 Room Air I&O- Last 24 Hours up to 6 AM 06/10/20 06:00 Intake Total 1360 ml Balance 1360 ml NESTOR CONKLIN MD Jun 10, 2020 07:50
[2020-06-10 07:56] LABS: ALBUMIN 2.7 GM/DL (3.2-5.2); ALT/SGPT 32 U/L (12-78); BILIRUBIN,TOTAL 0.5 MG/DL (0.2-1.0); BLOOD UREA NITROGEN 9 MG/DL (7-18); CALCIUM LEVEL 8.5 MG/DL (8.5-10.1); CARBON DIOXIDE LEVEL 27 MEQ/L (21-32); CHLORIDE LEVEL 107 MEQ/L (98-107); CREATININE FOR GFR 0.83 MG/DL (0.70-1.30); GLOMERULAR FILTRATION RATE > 60.0 (>56); GLUCOSE, FASTING 99 MG/DL (70-100); POTASSIUM SERUM 3.8 MEQ/L (3.5-5.1); SODIUM LEVEL 140 MEQ/L (136-145)
[2020-06-10] MEDS: ATORVASTATIN 20 MG TAB PO SCH (09:53)
[2020-06-10] MEDS: OMEPRAZOLE 20 MG CAP PO SCH (09:53)
[2020-06-10] MEDS: ENOXAPARIN 40MG/0.4ML SYRINGE (J1650 PER 10MG) SC SCH (09:54)
[2020-06-10] MEDS: MAALOX 30 ML SUSP *UDC PO PRN (10:05)
--- NOTE | 2020-06-10 12:39 | IPNPDOC ---
Text Note Date of Service The patient was seen on 06/10/20. NOTE SUBJECTIVE: -POD 3 s/p cholecystectomy. -Reports some improvement in his epigastric pain -Afebrile -Denies incr SOB, fevers, chills, n/v/d. Tolerating diet well. OBJECTIVE: PHYSICAL EXAMINATION: VS: Please see below CONSTITUTIONAL: resting in bed, AAO x 3 EYES: PERRLA, EOM intact HENT, MOUTH: Normocephalic, atraumatic, moist mucous membranes, NECK: SUPPLE, no JVD, no lymphadenopathy, no carotid bruit CV: Regular rate and rhythm, S1S2 normal, no murmurs/rubs/gallops RESPIRATORY: Clear to auscultation bilaterally, no rales/rhonchi/wheezes GI: Multiple clean incisions of the abdomen, no increased erythema. Tenderness over epigastric area mod (2/10 on pain scale), BS positive in 4 quadrants, soft, nondistended, no rebound or guarding, no organomegaly : Deferred MUSCULOSKELETAL: Normal ROM. No cyanosis, clubbing, swelling, joint deformity, extremity edema INTEGUMENTARY: Intact, no rashes, no lesions, no erythema NEUROLOGIC: Cranial Nerves II-XII are intact, no focal deficits PSYCHIATRIC: Mood and affect are normal LABORATORY DATA: WBC 8 Hgb 13.2 platelets 287 na 140 K 3.8 Cr 0.83 IMAGING: CT abd/pelvis: 1. Fatty infiltration of the liver. 2. Dilated gallbladder with gallbladder wall thickening and minimal Evita cholecystic edema question cholecystitis. 3. Left colonic diverticulosis without CT evidence of diverticulitis. 4. Mild ileus pattern in the bowel gas. No obstructive lesion seen. 5. Incidental finding bilateral pars interarticularis defects at L5 without spondylolisthesis. ASSESSMENT: 55 y/o M with PMH Of GERD, HLD admitted for acute cholecystitis now s/p cholecystectomy. PLAN: #Acute cholecystitis -POD day 3 cholecystectomy -Afebrile over the last 24h, continue monitoring, if febrile, per surgery, to reimage abdomen -WBC wnl, improved tenderness in epigastric area -BCx x 2 NGTD -Tolerating regular diet, pain control with toradol, morphine, zosyn IV day 4 -Surgery (Dr. Neville) following #HLD -C/w PO statin #GERD - PPI #DVT px -Enoxaparin DISPOSITION: Plan is discharge home when medically improved. Updated gerri Calderoner, . VS,Fishbone, I+O VS, Fishbone, I+O Laboratory Tests 06/10/20 06:35 Vital Signs Date Time Temp Pulse Resp B/P (MAP) Pulse Ox O2 Delivery O2 Flow Rate FiO2 06/10/20 06:00 98.6 85 20 117/95 (102) 95 06/09/20 14:00 Room Air I&O- Last 24 Hours up to 6 AM 06/10/20 06:00 Intake Total 1360 ml Balance 1360 ml ERIN DINERO MD Jun 10, 2020 12:39
[2020-06-10 14:00] VITALS: BP 120/91
[2020-06-11] MEDS: PIPERACILLIN/TAZOBACTAM SOD 3.375 GM in D5W MINI-BAG PLUS 50 ML IV SCH ×2 (04:23→09:09)
[2020-06-11 06:00] VITALS: BP 121/83
[2020-06-11] MEDS: ENOXAPARIN 40MG/0.4ML SYRINGE (J1650 PER 10MG) SC SCH (09:09)
[2020-06-11] MEDS: OMEPRAZOLE 20 MG CAP PO SCH (09:09)
[2020-06-11] MEDS: ATORVASTATIN 20 MG TAB PO SCH (09:09)
[2020-06-11 10:08] LABS: HEMATOCRIT 42.9 % (42.0-52.0); HEMOGLOBIN 13.6 g/dl (13.5-17.5); MEAN CORPUSCULAR HGB CONC 31.7 g/dl (32.0-36.5); MEAN CORPUSCULAR VOLUME 88.3 fl (80.0-96.0); PLATELET COUNT, AUTOMATED 318 10^3/uL (150-450); RED BLOOD COUNT 4.86 10^6/uL (4.30-6.10); WHITE BLOOD COUNT 7.2 10^3/uL (4.0-10.0)
--- NOTE | 2020-06-11 10:15 | DS.PDOC ---
Discharge Summary General Date of Admission Jun 06, 2020 at 15:50 Date of Discharge 06/11/2020 Attending Physician: ERIN DINERO MD Discharge Summary PROCEDURES PERFORMED DURING STAY: Cholecystectomy ADMITTING DIAGNOSES: 1. Acute cholecystitis DISCHARGE DIAGNOSES: 1. Acute cholecystitis 2. GERD 3. HLD COMPLICATIONS/CHIEF COMPLAINT: Acute Cholecystitis. HISTORY OF PRESENT ILLNESS: 55-year-old M who presented ED reporting 1 week history of epigastric pain with radiation to the right upper quadrant with associated nausea and vomiting without fevers or chills. HOSPITAL COURSE: In the ED, he was hemodynamically stable and afebrile and studies found leukocytosis, abdominal ultrasound study was read as normal but the CT A/P showed some mild inflammation around the gallbladder though no stones were noted on ultrasound of the gallbladder with normal LFTs. He did have a +Howell's sign and was started on IV zosyn and surgery was consulted. On day 2 of admission his leukocytosis improved and LFTs remained wnl and on discussion with surgery the decision was made to pursue a cholecystectomy that he had on 06/07. Post op he did well with some persisting RUQ and epigastric pain that eventually improved, had low grade fevers that eventually resolved and he tolerated a regular diet. He is now being discharged home with 3 days of cipro to complete a 7d course of antibiotics and will follow up with Dr. Neville in surgery clinic within 2 weeks as well as as his PCP. DISCHARGE MEDICATIONS: Please see below. ALLERGIES: Please see below. PHYSICAL EXAMINATION ON DISCHARGE: VITAL SIGNS: Please see below. CONSTITUTIONAL: resting sitting up in bed, AAO x 3 EYES: PERRLA, EOM intact HENT, MOUTH: Normocephalic, atraumatic, moist mucous membranes, NECK: SUPPLE, no JVD, no lymphadenopathy, no carotid bruit CV: Regular rate and rhythm, S1S2 normal, no murmurs/rubs/gallops RESPIRATORY: Clear to auscultation bilaterally, no rales/rhonchi/wheezes GI: Multiple clean incisions of the abdomen, no increased erythema. Mild TTP over epigastric area, BS positive in 4 quadrants, soft, nondistended, no rebound or guarding, no organomegaly MUSCULOSKELETAL: Normal ROM. No cyanosis, clubbing, swelling, joint deformity, extremity edema INTEGUMENTARY: Intact, no rashes, no lesions, no erythema NEUROLOGIC: Cranial Nerves II-XII are intact, no focal deficits PSYCHIATRIC: Mood and affect are normal LABORATORY DATA: Please see below. IMAGING: CT abd/pelvis: 1. Fatty infiltration of the liver. 2. Dilated gallbladder with gallbladder wall thickening and minimal Evita cholecystic edema question cholecystitis. 3. Left colonic diverticulosis without CT evidence of diverticulitis. 4. Mild ileus pattern in the bowel gas. No obstructive lesion seen. 5. Incidental finding bilateral pars interarticularis defects at L5 without spondylolisthesis. Gallbladder US: Scanning through the right upper quadrant of the abdomen demonstrates a mildly dilated, 10 cm, thin-walled gallbladder without evidence of stone or polyp. Common bile duct is normal measuring 0.6 cm in greatest diameter. There is evidence of fatty infiltration of the liver with hypoechoic areas of fat sparing near the gallblad kathy. No focal liver lesion is seen. Liver size is normal. No pancreatic abnormality is observed. No right renal abnormality is seen. There is no evidence of ascites. The right kidney measures 10.5 x 5.5 x 4.4 cm. IMPRESSION: Evidence of fatty infiltration of the liver. Gallbladder mildly dilated. Otherwise negative right upper quadrant sonography.. AXR: Supine and upright views of the abdomen show the intestinal gas pattern to be nonspecific. Gas and stool is seen throughout the colon within the rectosigmoid region. A few gas-filled mildly dilated small bowel loops are present. The organ silhouettes insofar as delineated appear unremarkable. No abdominal calcific densities are seen within the abdomen or pelvis. The accompanying single frontal view of the chest shows no free subdiaphragmatic air, cardiomegaly, infiltrates or effusions. IMPRESSION: Nonspecific intestinal gas pattern. Ileus is suspected, however, early SBO cannot be ruled out. PROGNOSIS: Good ACTIVITY: As tolerated DIET: Regular DISCHARGE PLAN: Home with 3d of BID cipro and follow up with surgery within 2 weeks and PCP within 1 week. DISPOSITION: Home DISCHARGE INSTRUCTIONS: Home with 3d of BID cipro and follow up with surgery within 2 weeks and PCP within 1 week. ITEMS TO FOLLOWUP ON ON OUTPATIENT: Acute cholecystitis s/p cholecystectomy DISCHARGE CONDITION: Stable TIME SPENT ON DISCHARGE: 47 minutes. Vital Signs/I&Os Vital Signs Date Time Temp Pulse Resp B/P (MAP) Pulse Ox O2 Delivery O2 Flow Rate FiO2 06/11/20 06:00 97.4 85 18 121/83 (96) 97 06/10/20 14:00 Room Air I&O- Last 24 Hours up to 6 AM 06/11/20 06:00 Intake Total 1300 ml Balance 1300 ml Laboratory Data CBC/BMP Microbiology Microbiology 06/08/20 Blood Culture - Preliminary, Resulted No Growth after 48 hours. All Specime... 06/08/20 Blood Culture - Preliminary, Resulted No Growth after 48 hours. All Specime... Discharge Medications Scheduled Atorvastatin Calcium (Atorvastatin Calcium) 40 Mg Tab, 40 MG PO DAILY, (Reported) PRESCRIBED BY DR. FU BUT PT STATES NOT TAKING Omeprazole (Omeprazole) 40 Mg Capsule.dr, 40 MG PO DAILY, (Reported) Scheduled PRN Fluticasone Propionate (Fluticasone Propionate) 16 Gm [place].susp, 1 SPRAY NARES DAILY PRN for CONGESTION, (Reported) Loratadine (Claritin) 10 Mg Cap, 10 MG PO DAILY PRN for ALLERGY SYMPTOMS, (Reported) Allergies Uncoded Allergies: ANTIBIOTIC IN [facility] (Allergy, Severe, BLISTERS ON HANDS, 10/17/17) ERNI DINERO MD Jun 11, 2020 10:15
[2020-06-11] MEDS ORDERED: CIPR-249 PO (10:19)
[2020-06-11] MEDS ORDERED: ACET1TAB55 PO (10:19)
[2020-06-11 10:47] LABS: BLOOD UREA NITROGEN 11 MG/DL (7-18); CALCIUM LEVEL 9.1 MG/DL (8.5-10.1); CARBON DIOXIDE LEVEL 26 MEQ/L (21-32); CHLORIDE LEVEL 105 MEQ/L (98-107); CREATININE FOR GFR 0.78 MG/DL (0.70-1.30); GLOMERULAR FILTRATION RATE > 60.0 (>56); GLUCOSE, FASTING 101 MG/DL (70-100); POTASSIUM SERUM 4.1 MEQ/L (3.5-5.1); SODIUM LEVEL 138 MEQ/L (136-145)
--- NOTE | 2020-06-11 15:48 | IPNPDOC ---
Text Note Date of Service The patient was seen on 06/11/20. NOTE SUBJECTIVE: -POD 4 s/p cholecystectomy. -Reports mild epigastric pain, much improved -Afebrile -Denies incr SOB, fevers, chills, n/v/d. Tolerating diet well. OBJECTIVE: PHYSICAL EXAMINATION: VS: Please see below CONSTITUTIONAL: resting in bed, AAO x 3 EYES: PERRLA, EOM intact HENT, MOUTH: Normocephalic, atraumatic, moist mucous membranes, NECK: SUPPLE, no JVD, no lymphadenopathy, no carotid bruit CV: Regular rate and rhythm, S1S2 normal, no murmurs/rubs/gallops RESPIRATORY: Clear to auscultation bilaterally, no rales/rhonchi/wheezes GI: Multiple clean incisions of the abdomen, no increased erythema. Mild tenderness over epigastric area, BS positive in 4 quadrants, soft, nondistended, no rebound or guarding, no organomegaly : Deferred MUSCULOSKELETAL: Normal ROM. No cyanosis, clubbing, swelling, joint deformity, extremity edema INTEGUMENTARY: Intact, no rashes, no lesions, no erythema NEUROLOGIC: Cranial Nerves II-XII are intact, no focal deficits PSYCHIATRIC: Mood and affect are normal LABORATORY DATA: Reviewed. pending AM labs IMAGING: CT abd/pelvis: 1. Fatty infiltration of the liver. 2. Dilated gallbladder with gallbladder wall thickening and minimal Evita cholecystic edema question cholecystitis. 3. Left colonic diverticulosis without CT evidence of diverticulitis. 4. Mild ileus pattern in the bowel gas. No obstructive lesion seen. 5. Incidental finding bilateral pars interarticularis defects at L5 without spondylolisthesis. ASSESSMENT: 55 y/o M with PMH Of GERD, HLD admitted for acute cholecystitis now s/p cholecystectomy. PLAN: #Acute cholecystitis -POD day 4 cholecystectomy -Afebrile over the last 48h, continue monitoring, if febrile, per surgery, to reimage abdomen -WBC wnl, improved tenderness in epigastric area -BCx x 2 NGTD -Tolerating regular diet, pain control with toradol, morphine, zosyn IV day 5. DC zosyn and switch to PO BID cipro -Surgery (Dr. Neville) following #HLD -C/w PO statin #GERD - PPI #DVT px -Enoxaparin DISPOSITION: Plan is discharge home when medically improved. Updated gerri Calderoner, yesterday. VS,Fishbone, I+O VS, Fishbone, I+O Vital Signs Date Time Temp Pulse Resp B/P (MAP) Pulse Ox O2 Delivery O2 Flow Rate FiO2 06/11/20 06:00 97.4 85 18 121/83 (96) 97 06/10/20 14:00 Room Air I&O- Last 24 Hours up to 6 AM 06/11/20 06:00 Intake Total 1300 ml Balance 1300 ml ERIN DINERO MD Jun 11, 2020 09:52
[2020-06-11] MEDS ORDERED: CIPROFLOXACIN 500MG TABLET PO SCH (18:00)
== END 2020-06-11 14:23 | disposition home or self-care (01) | DRG 263 ==
LOC: M ED 12:45 → M ED INP 15:50 → ENRESERV 17:01 → M MSPAV 18:25
PROVIDERS: ADMIT Internal Medicine; ATTEND Internal Medicine
PROC: 8E0W4CZ Robotic Assisted Procedure of Trunk Region, Percutaneous Endoscopic Approach (ICD-10-PCS; 2020-06-07)
PROC: 0FT44ZZ Resection of Gallbladder, Percutaneous Endoscopic Approach (ICD-10-PCS; principal; 2020-06-07 08:30)
DX: K81.0 Acute cholecystitis (principal); J98.11 Atelectasis; K21.9 Gastro-esophageal reflux disease without esophagitis; K57.30 Diverticulosis of large intestine without perforation or abscess without bleeding; E78.5 Hyperlipidemia, unspecified

== ENCOUNTER → 2020-06-20 | Outpatient (CLI) | payer OTHER ==
[~2020-06-20] MED LIST changes: +ACET1TAB55 PO; +CIPR-249 PO; +E-Z-GAS II EFFERVESCENT PACKET (SODIUM BICARB./CITRIC ACID/SIMETHICONE) As Ordered ONE; +E-Z-HD 98% w/w 340GM SUSP BTL As Ordered ONE; +E-Z-PAQUE 96% w/w SUSP 176GM BTL As Ordered ONE; +FLUTISP NARES; +OMEP-221 PO
--- NOTE | 2020-06-20 14:16 | REP ---
INDICATION: EPIGASTRIC PAIN, REFLUX SYMPTOMS. COMPARISON: None TECHNIQUE: This procedure was performed by Cynthia Vides, [facility], under the direct supervision of Dr. Gómez. Images were reviewed with Dr. Gómez prior to dictation. Liquid barium and gas producing crystals were given in the erect position, as well as liquid barium in the prone oblique position in order to perform a double contrast upper GI examination. FINDINGS: The general inspector film shows no organomegaly or pathological masses. The intestinal gas pattern is unremarkable. The oral and pharyngeal stages of deglutition were unremarkable. Esophageal transport is prompt and efficient and there is no evidence of esophagitis, stricture, or mucosal ring. There is no evidence of a hiatal hernia. There was no gastroesophageal reflux noted . The stomach mark are normally outlined. The rugal folds are smooth and regular. There is no gastritis, neoplasm, or ulcerative disease. The duodenal mark are normally outlined. There is a diverticulum of the 2nd portion of the duodenum. The mucosal folds are smooth and regular. There is no duodenitis, peptic ulcer disease or neoplasm. The visualized portion of the proximal small bowel appears normal in course and caliber. IMPRESSION: Diverticulum of the 2nd portion of the duodenum, otherwise unremarkable upper GI exam. 0.2 minutes of fluoroscopy time was utilized for this procedure. Some fluoroscopic images are performed with last image hold technology. These images require no additional radiation. <Electronically signed by Cynthia Vides > 06/20/20 1355 <Electronically signed by Logan Gómez > 06/20/20 [id number]
== END ==
LOC: M RAD 08:21
PROVIDERS: ATTEND Family Medicine
DX: R10.13 Epigastric pain (principal)

== ENCOUNTER → 2021-05-16 | Outpatient (CLI) | payer OTHER ==
[~2021-05-16] MED LIST changes: -E-Z-GAS II EFFERVESCENT PACKET (SODIUM BICARB./CITRIC ACID/SIMETHICONE) As Ordered ONE; -E-Z-HD 98% w/w 340GM SUSP BTL As Ordered ONE; -E-Z-PAQUE 96% w/w SUSP 176GM BTL As Ordered ONE
== END ==
LOC: M LABSMTC 10:12
PROVIDERS: ATTEND Anesthesiology
DX: Z01.812 Encounter for preprocedural laboratory examination (principal); Z20.822 Contact with and (suspected) exposure to COVID-19

== ENCOUNTER 2021-05-21 11:35 | Day surgery (SDC) | payer OTHER ==
[~2021-05-21] VITALS: Ht 167.6 cm; Wt 65.2 kg
[~2021-05-21 11:35] MED LIST changes: +NS 1,000 ML IV ONE
--- OUTSIDE RECORDS SUMMARY | 2021-05-21 11:40 | CCD | Continuity of Care Document ---
Author Author Richie CASTRO M.D. Organization Unknown Address [address], [address] [place] [address] Phone [phone] Care Team Providers Care [employer] Technician Name Role Phone Heron Osmani Bermudez D.O. AUTM [phone] AUTM Unavailable Problems Active Problems Provider Date Allergic rhinitis Dre Patterson II, PA-C Onset: 05/08/2014 Gastroesophageal reflux disease Dre Patterson II, PA-C Onset: 05/08/2014 Chronic maxillary sinusitis Caroline L Page DO Onset: 05/08 Acne Caroline L Page DO Onset: 05/08/2014 Headache Caroline L Page DO Onset: 05/08/2014 Deviated nasal septum Caroline L Page DO Onset: 05/08/2014 Hypertrophy of nasal turbinates Caroline L Page DO Onset: 07/08/2013 Chronic ethmoidal sinusitis Caroline L Page DO Onset: 05/08 Chronic frontal sinusitis Caroline L Page DO Onset: 014 Allergic rhinitis due to pollen Caroline L Page DO Onset: 07/08/2013 Chronic sinusitis Caroline L Page DO Onset: 05/08/2014 Acute pharyngitis Dre Patterson II, PA-C Onset: 09/07/2016 Sore throat symptom Dre Patterson II, PA-C Onset: 12/27/2016 Family history of polyp of colon ROULA Pettit Onset: 08/18/2017 Irregular bowel habits ROULA Pettit Onset: 08/18/2017 Social History Type Date Description Comments Sex Unknown ETOH Use 2 A Month Recreational Drug Use Denies Drug Use Tobacco Use Start: Unknown End: Unknown Patient is a former smoker 1 ppd for 15 years quit 2006 Allergies and adverse reactions Description No Known Drug Allergies Medications Active Medications SIG Qnty Indications Ordering Provide r Date Multivitamins Tablets 1 po q d Unknown Claritin 10mg Capsules once a day Unknown Fluticasone Propionate 50mcg/Act Suspension 2 sprays to each nostril daily Unknown Atorvastatin Calcium 40mg Tablets 1 qd Unknown Omeprazole 40mg Capsules DR 1 by mouth every day Unknown Acetaminophen 325mg Tablets Take 2 Tablets By Mouth Every 4 Hours as Needed For Pain Fever Unknown Immunizations Description No Information Available Vital Signs Date Vital Result Comment 03/18/2021 3:13pm BP Systolic 152 mmHg BP Diastolic 88 mmHg Body Temperature 98.7 F Height 66 inches 5'6" Weight 146.25 lb BMI (Body Mass Index) 23.6 kg/m2 [place] Body Weight 142 lb Weight 66.339 kg BSA (Body Surface Area) 1.75 m2 06/25/2020 9:40am BP Systolic 110 mmHg BP Diastolic 70 mmHg Height 66 inches 5'6" Weight 141.00 lb BMI (Body Mass Index) 22.8 kg/m2 [place] Body Weight 142 lb Weight 63.958 kg BSA (Body Surface Area) 1.72 m2 Results Description No Information Available Procedures Date Code Description Status 03/18/2021 91390 Office/Outpatient Established Mo d MDM 30-39 Min Completed Medical Devices Description No Information Available Encounters Type Date Location Provider Dx Diagnosis Office Visit 03/18/2021 2:45p [facility] Vitaliy loaiza M.D. K21.9 Gastro-esophageal reflux disease without esophagitis R10.13 Epigastric pain Assessments Date Code Description Provider 03/18/2021 K21.9 Gastro-esophageal reflux disease without esophagitis Vitaliy Castro M.D. 03/18/2021 R10.13 Epigastric pain Vitaliy Castro M.D. Plan of Treatment Future Appointment(s):* 06/01/2021 10:15 am - SOLEDAD Guevara at [facility] * 05/21/2021 12:30 pm - Vitaliy Castro M.D. at [facility] 03/18/2021 - Vitaliy Castro M.D.* K21.9 Gastro-esophageal reflux disease without esophagitis * R10.13 Epigastric pain* Comments:* Patient was counseled that his symptoms could be consistent with gastritis or even peptic ulcer disease. He is already on a proton pump inhibitor. As he is having persistent symptoms I think an upper endoscopy would be appropriate. He was counseled for an EGD. Risks were discussed. He had an opportunity to ask questions. He will be scheduled for an EGD and outpatient procedures. Functional Status Description No Information Available Mental Status Description No Information Available Referrals Refer to Reason for Referral Status Appt Date Vitaliy Castro M.D. DYSPHAGIA Scheduled 03/18/2021 [facility] [address] [place] [phone]
--- OUTSIDE RECORDS SUMMARY | 2021-05-21 11:40 | CCD | Continuity of Care Document ---
Author Author Richie CASTRO M.D. Organization Unknown Address [address], [address] [place] [address] Phone [phone] Care Team Providers Care Loan Examiner Name Role Phone Heron Osmani Bermudez D.O. AUTM [phone] AUTM Unavailable Problems Active Problems Provider Date [...] 1 ppd for 15 years quit 2006 Allergies, Adverse Reactions, Alerts Description No Known Drug Allergies Medications Active [...] lb BMI (Body Mass Index) 23.6 kg/m2 [place] Body Weight 142 lb Weight 66.339 kg BSA (Body Surface Area) 1.75 m2 06/25/2020 9:40am BP Systolic 110 mmHg BP Diastolic 70 mmHg Height 66 inches 5'6" Weight 141.00 lb BMI (Body Mass Index) 22.8 kg/m2 [place] Body Weight 142 lb Weight 63.958 kg BSA (Body Surface Area) 1.72 m2 Results Description No Information Available Procedures Description No Information Available Medical Devices Description No Information Available Encounters Description No Information Available Assessments Description No Information Available Plan of Treatment 06/25/2020 - Bipin Neville MD* K81.2 Acute cholecystitis with chronic cholecystitis* Comments:* She is doing well 2 weeks after an emergent/urgent cholecystectomy for acute cholecystitis. He did have a couple of days where he was febrile postoperatively. He completed his antibiotic course in the hospital. He is not showing any signs of postcholecystectomy syndrome. He had his brother on the phone and I answered their questions and the brother served as the communications writer for my questions to him. At this point since he is not having any problems with any food he can continue on regular diet as tolerated. He can resume all activities as tolerated without any restrictions.Follow-up as needed. * Z48.815 Encounter for surgical aftercare following surgery on the digestive system Functional Status Description No Information Available Mental Status Description No Information Available Referrals Refer to Reason for Referral Status Appt Date Vitaliy Castro M.D. DYSPHAGIA Scheduled 03/18/2021 [facility] [address] [phone]
--- OUTSIDE RECORDS SUMMARY | 2021-05-21 11:41 | CCD ---
Author Author [facility] Organization [facility] Address Unknown Phone Unavailable Care Team Providers Care Spearer Name Role Phone Melida Shine MD Unavailable Unavailable Melida Shine MD Unavailable Unavailable Melida Shine MD Unavailable Unavailable Mleida Shine MD Unavailable Unavailable Melida Shine MD Unavailable Unavailable Melida Shine MD Unavailable Unavailable Melida Shine MD Unavailable Unavailable Melida Shine MD Unavailable Unavailable Melida Shine MD Unavailable Unavailable Melida Shine MD Unavailable Unavailable Melida Shine MD Unavailable Unavailable Melida Shine MD Unavailable Unavailable Melida Shine MD Unavailable Unavailable Melida Shine MD Unavailable Unavailable Melida Shine MD Unavailable Unavailable Melida Shine MD Unavailable Unavailable Melida Shine MD Unavailable Unavailable Melida Shine MD Unavailable Unavailable Melida Shine MD Unavailable Unavailable Melida Shine MD Unavailable Unavailable Melida Shine MD Unavailable Unavailable Melida Shine MD Unavailable Unavailable Melida Shine MD Unavailable Unavailable Melida Shine MD Unavailable Unavailable Melida Shine MD Unavailable Unavailable Melida Shine MD Unavailable Unavailable Rl Melida MD Unavailable Unavailable Melida Shine MD Unavailable Unavailable Melida Shine MD Unavailable Unavailable Melida Shine MD Unavailable Unavailable Melida Shine MD Unavailable Unavailable KolMelida byrne MD Unavailable Unavailable KolMelida ybrne MD Unavailable Unavailable MATTHEW, O DEAN ELAM Unavailable Unavailable MATTHEW, O DEAN ELAM Unavailable Unavailable MATTHEW, O DEAN MD Unavailable Unavailable MATTHEW, O DEAN MD Unavailable Unavailable MATTHEW, O DEAN MD Unavailable Unavailable MATTHEW, O DEAN MD Unavailable Unavailable MATTHEW, O DEAN MD Unavailable Unavailable MATTHEW, O DEAN MD Unavailable Unavailable MATTHEW, O DEAN MD Unavailable Unavailable MATTHEW, O DEAN MD Unavailable Unavailable MATTHEW, O DEAN MD Unavailable Unavailable MATTHEW, O DEAN MD Unavailable Unavailable MATTHEW, O DEAN MD Unavailable Unavailable MATTHEW, O DEAN MD Unavailable Unavailable MATTHEW, O DEAN MD Unavailable Unavailable MATTHEW, O DEAN MD Unavailable Unavailable MATTHEW, O DEAN MD Unavailable Unavailable MATTHEW, O DEAN MD Unavailable Unavailable MATTHEW, O DEAN MD Unavailable Unavailable MATTHEW, O DEAN MD Unavailable Unavailable MATTHEW, O DEAN MD Unavailable Unavailable MATTHEW, O DEAN MD Unavailable Unavailable MATTHEW, O DEAN MD Unavailable Unavailable MATTHEW, O DEAN MD Unavailable Unavailable MATTHEW, O DEAN MD Unavailable Unavailable MATTHEW, O DEAN MD Unavailable Unavailable MATTHEW, O DEAN MD Unavailable Unavailable MATTHEW, O DEAN MD Unavailable Unavailable MATTHEW, O DEAN MD Unavailable Unavailable MATTHEW, O DEAN MD Unavailable Unavailable MATTHEW, O DEAN MD Unavailable Unavailable MATTHEW, O DEAN MD Unavailable Unavailable MATTHEW, O DEAN MD Unavailable Unavailable MATTHEW, O DEAN MD Unavailable Unavailable MATTHEW, O DEAN MD Unavailable Unavailable MATTHEW, O DEAN MD Unavailable Unavailable MATTHEW, O DEAN MD Unavailable Unavailable MATTHEW, O DEAN MD Unavailable Unavailable MATTHEW, O DEAN MD Unavailable Unavailable MATTHEW, O DEAN MD Unavailable Unavailable MATTHEW, O DEAN ELAM Unavailable Unavailable MATTHEW, O DEAN MD Unavailable Unavailable MATTHEW, O DEAN MD Unavailable Unavailable MATTHEW, O DEAN MD Unavailable Unavailable MATTHEW, O DEAN MD Unavailable Unavailable Fish, J Osmani Unavailable Unavailable Fish, J Osmani Unavailable Unavailable Fish, J Osmani Unavailable Unavailable Fish, J Osmani Unavailable Unavailable Fish, J Osmani Unavailable Unavailable Fish, J Osmani Unavailable Unavailable Fish, J Osmani Unavailable Unavailable Fish, J Osmani Unavailable Unavailable Fish, J Osmani Unavailable Unavailable Fish, J Osmani Unavailable Unavailable Fish, J Osmani Unavailable Unavailable Fish, J Osmani Unavailable Unavailable Fish, J Osmani Unavailable Unavailable Fish, J Osmani Unavailable Unavailable Fish, J Osmani Unavailable Unavailable Fish, J Osmani Unavailable Unavailable Fish, J Osmani Unavailable Unavailable Fish, J Osmani Unavailable Unavailable Fish, J Osmani Unavailable Unavailable Fish, J Osmani Unavailable Unavailable Fish, J Osmani Unavailable Unavailable Fish, J Osmani Unavailable Unavailable Fish, J Osmani Unavailable Unavailable Fish, J Osmani Unavailable Unavailable Fish, J Osmani Unavailable Unavailable Fish, J Osmani Unavailable Unavailable Fish, J Osmani Unavailable Unavailable Fish, J Osmani Unavailable Unavailable Fish, J Osmani Unavailable Unavailable Fish, J Osmani Unavailable Unavailable Fish, J Osmani Unavailable Unavailable Fish, J Osmani Unavailable Unavailable Fish, J Osmani Unavailable Unavailable Fish, J Osmani Unavailable Unavailable Fish, J Osmani Unavailable Unavailable Fish, J Osmani Unavailable Unavailable Fish, J Osmani Unavailable Unavailable Fish, J Osmani Unavailable Unavailable Fish, J Osmani Unavailable Unavailable Fish, J Osmani Unavailable Unavailable Fish, J Osmani Unavailable Unavailable Fish, J Osmani Unavailable Unavailable Fish, J Osmani Unavailable Unavailable Fish, J Osmani Unavailable Unavailable Fish, J Osmani Unavailable Unavailable Fish, J Osmani Unavailable Unavailable Fish, J Osmani Unavailable Unavailable Fish, J Osmani Unavailable Unavailable Fish, J Osmani Unavailable Unavailable Fish, J Osmani Unavailable Unavailable Fish, J Osmani Unavailable Unavailable Fish, J Osmani Unavailable Unavailable Fish, J Osmani Unavailable Unavailable Fish, J Osmani Unavailable Unavailable Fish, J Osmani Unavailable Unavailable Fish, J Osmani Unavailable Unavailable Fish, J Osmani Unavailable Unavailable Fish, J Osmani Unavailable Unavailable Fish, J Osmani Unavailable Unavailable Fish, J Osmani Unavailable Unavailable Fish, J Osmani Unavailable Unavailable Fish, J Osmani Unavailable Unavailable Fish, J Osmani Unavailable Unavailable Fish, J Osmani Unavailable Unavailable Fish, J Osmani Unavailable Unavailable Fish, J Osmani Unavailable Unavailable Fish, J Osmani Unavailable Unavailable Fish, J Osmani Unavailable Unavailable Fish, J Osmani Unavailable Unavailable Fish, J Osmani Unavailable Unavailable Fish, J Osmani Unavailable Unavailable Fish, J Osmani Unavailable Unavailable Fish, J Osmani Unavailable Unavailable Fish, J Osmani Unavailable Unavailable Fish, J Osmani Unavailable Unavailable Fish, J Osmani Unavailable Unavailable Fish, J Osmani Unavailable Unavailable Fish, J Osmani Unavailable Unavailable Fish, J Osmani Unavailable Unavailable Fish, J Osmani Unavailable Unavailable Fish, J Osmani Unavailable Unavailable Fish, J Osmani Unavailable Unavailable Fish, J Osmani Unavailable Unavailable Fish, J Osmani Unavailable Unavailable Fish, J Osmani Unavailable Unavailable Fish, J Osmani Unavailable Unavailable Fish, J Osmani Unavailable Unavailable Fish, J Osmani Unavailable Unavailable Fish, J Osmani Unavailable Unavailable Fish, J Osmani Unavailable Unavailable Fish, J Osmani Unavailable Unavailable Fish, J Osmani Unavailable Unavailable Fish, J Osmani Unavailable Unavailable Fish, J Osmani Unavailable Unavailable Fish, J Osmani Unavailable Unavailable Fish, J Osmani Unavailable Unavailable Fish, J Osmani Unavailable Unavailable Fish, J Osmani Unavailable Unavailable Fish, J Osmani Unavailable Unavailable Fish, J Osmani Unavailable Unavailable Fish, J Osmani Unavailable Unavailable Fish, J Osmani Unavailable Unavailable Fish, J Osmani Unavailable Unavailable Fish, J Osmani Unavailable Unavailable Fish, J Osmani Unavailable Unavailable Fish, J Osmani Unavailable Unavailable Fish, J Osmani Unavailable Unavailable Fish, J Osmani Unavailable Unavailable Fish, J Osmani Unavailable Unavailable Fish, J Omsani Unavailable Unavailable Fish, J Osmani Unavailable Unavailable Fish, J Osmani Unavailable Unavailable Fish, J Osmani Unavailable Unavailable Fish, J Osmani Unavailable Unavailable Fish, J Osmani Unavailable Unavailable Fish, J Osmani Unavailable Unavailable Fish, J Osmani Unavailable Unavailable Fish, J Osmani Unavailable Unavailable Fish, J Osmani Unavailable Unavailable Fish, J Osmani Unavailable Unavailable Fish, J Osmani Unavailable Unavailable Fish, J Osmani Unavailable Unavailable Fish, J Osmani Unavailable Unavailable Fish, J Osmani Unavailable Unavailable Fish, J Osmani Unavailable Unavailable Fish, J Osmani Unavailable Unavailable Fish, J Osmani Unavailable Unavailable Fish, J Osmani Unavailable Unavailable Fish, J Osmani Unavailable Unavailable Fish, J Osmani Unavailable Unavailable Fish, J Osmani Unavailable Unavailable Fish, J Osmani Unavailable Unavailable Fish, J Osmani Unavailable Unavailable Fish, J Osmani Unavailable Unavailable Fish, J Osmani Unavailable Unavailable Fish, J Osmani Unavailable Unavailable Fish, J Osmani Unavailable Unavailable Fish, J Osmani Unavailable Unavailable Fish, J Osmani Unavailable Unavailable Fish, J Osmani Unavailable Unavailable Fish, J Osmani Unavailable Unavailable Fish, J Osmani Unavailable Unavailable Fish, J Osmani Unavailable Unavailable Fish, J Osmani Unavailable Unavailable Fish, J Osmain Unavailable Unavailable Fish, J Osmani Unavailable Unavailable Fish, J Osmani Unavailable Unavailable Fish, J Osmani Unavailable Unavailable Fish, J Osmani Unavailable Unavailable Fish, J Osmani Unavailable Unavailable Fish, J Osmani Unavailable Unavailable Fish, J Osmani Unavailable Unavailable Fish, J Osmani Unavailable Unavailable Fish, J Somani Unavailable Unavailable Fish, J Osmani Unavailable Unavailable Fish, J Osmani Unavailable Unavailable Fish, J Osmani Unavailable Unavailable Fish, J Osmani Unavailable Unavailable Fish, J Osmani Unavailable Unavailable Fish, J Osmani Unavailable Unavailable Fish, J Osmani Unavailable Unavailable Fish, J Osmani Unavailable Unavailable Fish, J Osmani Unavailable Unavailable Fish, J Osmani Unavailable Unavailable Fish, J Osmani Unavailable Unavailable Fish, J Osmani Unavailable Unavailable Fish, J Osmani Unavailable Unavailable Fish, J Osmani Unavailable Unavailable Fish, J Osmani Unavailable Unavailable Fish, J Osmani Unavailable Unavailable NON, PHYSICIAN STAFF Unavailable Unavailable Re-disclosure Warning The records that you are about to access may contain information from federally-assisted alcohol or drug abuse programs. If such information is present, then the following federally mandated warning applies: This information has been disclosed to you from records protected by federal confidentiality rules (42 CFR part 2). The federal rules prohibit you from making any further disclosure of this information unless further disclosure is expressly permitted by the written consent of the person to whom it pertains or as otherwise permitted by 42 CFR part 2. A general authorization for the release of medical or other information is NOT sufficient for this purpose. The Federal rules restrict any use of the information to criminally investigate or prosecute any alcohol or drug abuse patient.The records that you are about to access may contain highly sensitive health information, the redisclosure of which is protected by Article 27-F of the [facility] Public Health law. If you continue you may have access to information: Regarding HIV / AIDS; Provided by facilities licensed or operated by the [facility] Office of Mental Health; or Provided by the [facility] Office for People With Developmental Disabilities. If such information is present, then the following [facility] mandated warning applies: This information has been disclosed to you from confidential records which are protected by state law. State law prohibits you from making any further disclosure of this information without the specific written consent of the person to whom it pertains, or as otherwise permitted by law. Any unauthorized further disclosure in violation of state law may result in a fine or senior living sentence or both. A general authorization for the release of medical or other information is NOT sufficient authorization for further disc losure. Allergies and Adverse Reactions Type Description Substance Reaction Status Data Source(s ) No Known Allergies No Known Allergies [facility] Family History Family Member Name Family Member Gender Family Member Status Date o f Status Description Data Source(s) Unknown Unknown Problem [facility] ([facility], ) Unknown Unknown Problem [facility] ([facility] ) Unknown Unknown Problem [facility] ([facility], ) Unknown Female Problem [facility] ([facility] Unknown Female Problem [facility] ([facility] ) Encounters Encounter Providers Location Date Indications Data Source(s ) Outpatient Attender: DEAN Waytt/Bianca/Stu/Ximena balderas 03/18/2021 02:45:00 PM EDT [facility] Out[facility] Attender: Melida Shine MDConsultant: STAFF NON 10/29/2020 06:45:00 AM EDT - 10/29/2020 09:21:00 AM EDT [facility] Patient discharged. Outpatient Attender: Melida Shine MDConsultant: STAFF NON 10/23/2020 09:43:17 AM EDT - 10/27/2020 12:30:00 PM EDT [facility] Patient discharged. Outpatient Attender: Osmani Shelby [place] [facility] 10/09/2020 09:30:0 0 AM EDT [facility] ([facility] Outpatient Attender: Osmani Shelby [place] [facility] 09/25/2020 03:00:0 0 PM EDT [facility] ([facility] Outpatient Attender: Osmani Shelby [place] [facility] 06/23/2020 10:15:0 0 AM EST [facility] ([facility] Outpatient Attender: Osmani ShelbyReferrer: Osmani Herreraltant: Osmani Shelby 05/27/2020 06:47:00 PM EST - 05/27/2020 06:57:00 PM EST [facility] Outpatient Attender: Osmani Shelby [place] [facility] 05/27/2020 01:20:0 0 PM EST [facility] ([facility] Immunizations Vaccine Date Status Description Data Source(s) COVID-19 VACCINE Pfizer 10/07/2020 12:00:00 AM EDT completed [facility] Vaccine Series Complete: YESThis Data wa s Submitted to [facility] Via [employer]. COVID-19 VACCINE Pfizer 09/10/2020 12:00:00 AM EST completed [facility] Vaccine Series Complete: NOThis Data was Submitted to [facility] Via [employer]. Medications Medication Brand Name Start Date Product Form Dose Route Admi nistrative Instructions Pharmacy Instructions Status Indications Reaction Description Data Source(s) 60 mcg (15 mcg x 4)/0.5 mL 03/17/2021 12:00:00 AM EDT [facility] 0 INJECT BY [facility] INJECT BY [facility] SOLD: 03/17/2021 [facility] pantoprazole 20 MG Delayed Release Oral Tablet [Protonix] Pr otonix 10/10/2020 12:00:00 AM EDT ORAL active M [facility]ENT ([facility] dexlansoprazole 30 MG Delayed Release Oral Capsule [Dexilant ] Dexilant 09/25/2020 12:00:00 AM EDT ORAL completed [facility] ([facility] Insurance Providers Payer name Policy type / Coverage type Policy ID Covered libertarian ID Covered libertarian's relationship to burrell Policy Burrell Plan Information BS [place] Medigap Part B [id number] Self [id number] [place] PPO 302/307 [id number] SP [id number] [place] P[place] 302/307 [id number] SP [id number] BCBS Commercial Simply Blue [id number] Self Simply Blue BCBS Medigap Part B Essential Plan [id number] Self Essential Plan 1 SELF PAY ONLY [id number] SP [id number] [facility] PLAN [facility] [id number] SP [id number] [employer] BCBS Medigap Part B [id number] Self [id number] Medicaid [place] Medigap Part B [id number] [facility] Health Maintenance Organization (O) [id number] Self [id number] [facility] [id number] SP [id number] [employer] BCBS Medigap Part B [id number] [facility] [id number] SP [id number] [employer]BS Medigap Part B [id number] Self [id number] [employer]BS Health Maintenance Organization (HMO) [id number] Self [id number] [employer] BCBS Medigap Part B [id number] Self [id number] [employer] BCBS Medigap Part B [id number] Self [employer]BS Medigap Part B [id number] Self [employer]BS Health Maintenance Organization (HMO) [id number] Self [employer] BCBS B [id number] S [id number] BS [place] Commercial [id number] Self BLUE CROSS OTHER 1 [id number] SP [id number] [employer] BCBS Medigap Part B [id number] Self [id number] [employer] COMMUNITY PLAN XIX [id number] 18 [id number] [employer] COMMUNITY PLAN XIX [id number] 18 [id number] [facility] O [id number] S [id number] [facility] [employer] [id number] Self [id number] [employer] BCBS Medigap Part B [id number] Self [id number] [employer]BS Medigap Part B [id number] Self [id number] [facility] BS Medigap Part B [id number] Self [id number] Problems, Conditions, and Diagnoses Code Display Name Description Problem Type Effective Dates Data Source(s) I61487 Dry eye syndrome of bilateral lacrimal g lands Dry eye syndrome of bilateral lacrimal glands Diagnosis 10/29/2020 06:45:00 AM EDT [facility] H524 Presbyopia Presbyopia Diagnosis 10/29/2020 06:45:00 AM ED T [facility] [id number] Keratoconjunctivitis sicca, not specifie d as Sjogren's, bilateral Keratoconjunctivitis sicca, not specified as Sjogren's, bilateral Diagnosis 10/29/2020 06:45:00 AM EDT [facility] H2512 Age-related nuclear cataract, left eye A ge-related nuclear cataract, left eye Diagnosis 10/29/2020 06:45:00 AM EDT [facility] H269 Unspecified cataract Unspecified cataract Diagnosis 10/27/2020 12:15:00 PM EDT [facility] [id number] Encounter for other preprocedural examin ation Encounter for other preprocedural examination Diagnosis 10/27/2020 12:15:00 PM EDT [facility] K219 Gastro-esophageal reflux disease without esophagitis Gastro-esophageal reflux disease without esophagitis Diagnosis 05/27/2020 06:47:00 PM ES T [facility] E785 Hyperlipidemia, unspecified Hyperlipidemia, unspecifie d Diagnosis 05/27/2020 06:47:00 PM [facility] [id number] Epigastric abdominal tenderness Epigastric abdom inal tenderness Diagnosis 05/27/2020 06:47:00 PM [facility] Surgeries/Procedures Procedure Description Date Indications Data Source(s) OFFICE OUTPATIENT VISIT 25 MINUTES 03/18/2021 12:00:00 AM EDT [facility] Results ID Date Data Source [id number] 10/29/2020 08:53:00 [place] [address] OPERATIVE SUMMARYNAME: SULEMA FITZGERALD DATE OF : 1965ATTENDING PHYS: Melida Shine MD DATE: 10/29/20 MR#: [id number] OF PROCEDURE: 10/29/2020REOPERATIVE DIAGNOSIS: Age-related nuclear cataract, left eye.POSTOPERATIVE DIAGNOSIS: Age-related nuclear cataract, left eye.PROCEDURE PERFORMED: Phacoemulsification of posterior chamber with intraocular lensimplantation left eye.ANESTHESIA: Topical sedation.LENS USED: AUOOTO 21.0 diopters.DETAILS OF PROCEDURE: The eye was prepped and draped in the usual fashion. Lidspeculum was placed in the lid. A stab incision was made to the anterior chamber with asuperblade. 1% non-preserved lidocaine was instilled and viscoelastic instilled. The eye wasrefixated, and a 2.4 mm Keratome made a clear corneal and temporal limbal incision. The lens wasthen hydrodissected, and then it was grooved in two meridians at the phacoemulsification. The lenswas scrapped into four quadrants. Each quadrant was in good phacoemulsification. The remainingcortex was removed with I&A unit. The capsular bag was refilled with viscoelastic and theposterior chamber and intraocular lens were inserted into the capsular bag with no difficulty. Anyremaining viscoelastic was removed with the I&A, and the wound was hydrated and balanced saltand ceftriaxone were instilled. The patient tolerated the procedure well, and went to the recoveryroom in stable condition.DD: Melida Shine MD 10/29/20 08:49DT: VINH 10/29/20 08:53DS: Melida Shine MD 11/19/20 16:35 1 Name Value Range Interpretation Code Description Data Allyson rce(s) Supporting Document(s) ID Date Data Source [id number] 10/24/2020 10:41:00 AM EDT [facility] Name Value Range Interpretation Code Description Data Allyson rce(s) Supporting Document(s) SARS-CoV-2 (COVID-19) Negative [facility] This lab was ordered by [place] for [facility] and reported by [facility]. ID Date Data Source [id number] 09/25/2020 04:25:00 PM EDT [facility] Name Value Range Interpretation Code Description Data Allyson rce(s) Supporting Document(s) Lipoprotein lipase [Enzymatic activity/volume] in Serum or Plasm a 41 U/L 13-78 [facility] ([facility] ) ID Date Data Source [id number] 09/25/2020 04:25:00 PM EDT [facility] ([facility] Name Value Range Interpretation Code Description Data Allyson rce(s) Supporting Document(s) Cholesterol [Mass/volume] in Serum or Plasma 221 mg/dL 100 -199 Above high normal [facility] ([facility] ) Triglyceride [Mass/volume] in Serum or Plasma 161 mg/dL 0-149 Above high normal [facility] ([facility] Laboratory test finding (navigational concept) 29 mg/dL 5-40 [facility] ([facility] Cholesterol in HDL [Mass/volume] in Serum or Plasma 53 mg/dL [facility] ([facility] Laboratory test finding (navigational concept) 139 mg/dL 0-99 Above high normal [facility] ([facility] Comment: Laboratory test result [facility] ([facility] ID Date Data Source [id number] 09/25/2020 04:25:00 PM EDT [facility] ([facility] Name Value Range Interpretation Code Description Data Allyson rce(s) Supporting Document(s) Glucose [Mass/volume] in Serum or Plasma 89 mg/dL 65-99 [facility] ([facility] BUN 13 mg/dL 6-24 [facility] ([facility] Creatinine [Mass/volume] in Serum or Plasma 0.91 mg/dL 0.76-1.27 [facility] ([facility] eGFR If NonAfricn Am 95 mL/min/1.73 [facility] ([facility] eGFR If Africn Am 110 mL/min/1.73 [place] [facility] ([facility] Urea nitrogen/Creatinine [Mass Ratio] in Serum or Plasma 14 9 -20 [facility] ([facility] Sodium [Moles/volume] in Serum or Plasma 143 mmol/L 134-144 [facility] ([facility] Potassium [Moles/volume] in Serum or Plasma 4.6 mmol/L 3.5-5.2 [facility] ([facility] Carbon dioxide, total [Moles/volume] in Serum or Plasma 24 mmol/L 20 -29 [facility] ([facility] Calcium [Mass/volume] in Serum or Plasma 9.9 mg/dL 8.7-10.2 [facility] ([facility] Chloride [Moles/volume] in Serum or Plasma 105 mmol/L 96-106 [facility] ([facility] Albumin [Mass/volume] in Serum or Plasma 4.6 g/dL 3.8-4.9 [facility] ([facility] [facility] Protein [Mass/volume] in Serum or Plasma 6.9 g/dL 6.0-8.5 [facility] ([facility] Globulin [Mass/volume] in Serum by calculation 2.3 g/dL 1.5-4.5 [facility] ([facility] Albumin/Globulin [Mass Ratio] in Serum or Plasma 2.0 1.2-2.2 [facility] ([facility] Bilirubin.total [Mass/volume] in Serum or Plasma Laboratory test result 0.0-1.2 [facility] ([facility] Aspartate aminotransferase [Enzymatic activity/volume] in Serum or Plasma 22 IU/L 0-40 [facility] Alkaline phosphatase [Enzymatic activity/volume] in Serum or Plasma 79 IU/L 39-117 [facility] Alanine aminotransferase [Enzymatic activity/volume] in Seru m or Plasma 10 IU/L 0-44 [facility] ID Date Data Source [id number] 09/25/2020 04:25:00 PM EDT [facility] ([facility] Name Value Range Interpretation Code Description Data Allyson rce(s) Supporting Document(s) Leukocytes [#/volume] in Blood by Automated count 6.1 x10E3/uL 3.4-10 .8 [facility] ([facility] Hemoglobin [Mass/volume] in Blood 15.5 g/dL 13.0-17.7 [facility] ([facility] Erythrocytes [#/volume] in Blood by Automated count 5.31 x10E6/uL 4.1 4-5.80 [facility] ([facility] Hematocrit [Volume Fraction] of Blood by Automated count 46.5 % 3 7.5-51.0 [facility] ([facility] Erythrocyte mean corpuscular volume [Entitic volume] by Auto mated count 88 fL 79-97 [facility] ([facility] Erythrocyte mean corpuscular hemoglobin [Entitic mass] by Automated count 29.2 pg 26.6-33.0 [facility] Erythrocyte mean corpuscular hemoglobin concentration [Mass/volume] by Automated count 33.3 g/dL 31.5-35.7 [facility] ([facility] Erythrocyte distribution width [Ratio] by Automated count 13.0 % 11.6-15.4 [facility] ([facility] Platelets [#/volume] in Blood by Automated count 307 x10E3/uL 150-450 [facility] ([facility] Monocytes/100 leukocytes in Blood by Automated count 9 % [facility] ([facility] Lymphs 32 % [facility] ([facility] Neutrophils 50 % [facility] ([facility] Eosinophils/100 leukocytes in Blood by Automated count 8 % [facility] ([facility] Basophils/100 leukocytes in Blood by Automated count 1 % [facility] ([facility] Neutrophils [#/volume] in Blood by Automated count 3.1 x10E3/uL 1.4-7 .0 [facility] ([facility] Immature cells [#/volume] in Blood Laboratory test result [facility] ([facility] Lymphocytes [#/volume] in Blood 2.0 x10E3/uL 0.7-3.1 [facility] ([facility] Eosinophils [#/volume] in Blood by Automated count 0.5 x10E3/uL 0.0-0.4 Above high normal [facility] ([facility] ) Monocytes [#/volume] in Blood 0.5 x10E3/uL 0.1-0.9 [facility] ([facility] Immature granulocytes/100 leukocytes in Blood by Automated count 0 % [facility] ([facility] Basophils [#/volume] in Blood by Automated count 0.0 x10E3/uL 0.0-0.2 [facility] ([facility] Immature granulocytes [#/volume] in Blood by Automated count 0.0 x10E3/uL 0.0-0.1 [facility] ([facility] [place] Nucleated erythrocytes/100 leukocytes [Ratio] in Blood by Automated count Laboratory test result [facility] ([facility] Morphology [Interpretation] in Blood Narrative Laboratory test result [facility] ([facility] ID Date Data Source [id number] 07/07/2020 12:00:00 AM EST [facility] Name Value Range Interpretation Code Description Data Allyson rce(s) Supporting Document(s) SARS-CoV2 Rapid Antigen [facility] This lab was ordered by [facility] and reported by [facility]. ID Date Data Source [id number] 06/06/2020 11:50:00 PM EST [facility] Name Value Range Interpretation Code Description Data Allyson rce(s) Supporting Document(s) SARS coronavirus 2 RNA [Presence] in Res piratory specimen by CA with probe detection [facility] This lab was ordered by [facility] a nd reported by [facility]. ID Date Data Source [id number] 06/02/2020 11:43:00 AM EST [facility] ([facility] Name Value Range Interpretation Code Description Data Allyson rce(s) Supporting Document(s) Helicobacter pylori Ag [Presence] in Stool Laboratory test result [facility] ([facility] SRC:STOOL ID Date Data Source [id number] 05/27/2020 03:06:00 PM EST [facility] ([facility] Name Value Range Interpretation Code Description Data Allyson rce(s) Supporting Document(s) Cve Panel Laboratory test result ME DENT ([facility] Is patient fasting? N Cholesterol 209 mg/dL 131-200 Above high normal [facility] ([facility] Is patient fasting? N HDL 37 mg/dL 29-86 [facility] ([facility] Is patient fasting? N Triglycerides 179 mg/dL 35-160 Above high normal MEDE NT ([facility] Is patient fasting? N LDL 141 mg/dL 65-175 [facility] ([facility] Is patient fasting? N Risk Factor 5.6 3.4-4.9 Above high normal [facility] ([facility] Is patient fasting? N LDL/HDL 3.81 1.00-3.55 Above high normal [facility] ([facility] Is patient fasting? N ID Date Data Source [id number] 05/27/2020 03:06:00 PM EST [facility] ([facility] Name Value Range Interpretation Code Description Data Allyson rce(s) Supporting Document(s) Amylase [Enzymatic activity/volume] in Serum or Plasma 97 U/L 30- 110 [facility] ([place] Is patient fasting? N Lipoprotein lipase [Enzymatic activity/volume] in Serum or Plasm a 62 U/L 13-60 Above high normal [facility] ([facility] ) Is patient fasting? N ID Date Data Source [id number] 05/27/2020 03:06:00 PM EST [facility] ([facility] Name Value Range Interpretation Code Description Data Allyson rce(s) Supporting Document(s) Comprehensive Metabo Laboratory test result [facility] ([place] Is patient fasting? N Potassium 4.3 meq/L 3.6-5.0 [facility] ([facility] Is patient fasting? N Sodium 140 meq/L 134-153 [facility] ([facility] Is patient fasting? N Chloride 102 meq/L 98-107 [facility] ([facility] Is patient fasting? N Co2 31 meq/L 22-30 Above high normal [facility] ([place] Is patient fasting? N Glucose 98 mg/dL 65-110 [facility] ([facility] Is patient fasting? N Creatinine 0.8 mg/dL 0.7-1.5 [facility] ([facility] Is patient fasting? N BUN 11 mg/dL 7-21 [facility] ([facility] Is patient fasting? N Total Protein 6.6 g/dL 6.3-8.2 [facility] Is patient fasting? N BUN/Creat 14 8-27 [facility] ([facility] Is patient fasting? N Globulin 2.1 GM/DL 2.4-3.2 Below low normal [facility] ( [place] Is patient fasting? N Albumin 4.5 g/dL 3.9-5.0 [facility] ([facility] Is patient fasting? N Calcium 9.3 mg/dL 8.4-10.2 [facility] ([facility] Is patient fasting? N A/G Ratio 2.1 0.8-2.0 Above high normal [facility] ([place] Is patient fasting? N Alkaline Phos 71 U/L 38-126 [facility] ([facility] Is patient fasting? N Sgot/Ast 26 U/L 5-40 [facility] ([facility] Is patient fasting? N Total Bili Laboratory test result 0.2-1.3 [place] DENT ([facility] Is patient fasting? N Anion Gap 7.0 mmol/L 8.0-16.0 Below low normal [facility] ( [facility] Is patient fasting? N SGPT/Alt 11 U/L 7-56 [facility] ([facility] Is patient fasting? N Age 55 yrs MED[facility] ([facility] Is patient fasting? N Non-Aa GFR Laboratory test result [place] D[facility] ([facility] Is patient fasting? N Afr Amer GFR Laboratory test result [facility] ([facility] Is patient fasting? N ID Date Data Source [id number] 05/27/2020 03:06:00 PM EST [facility] ([facility] Name Value Range Interpretation Code Description Data Allyson rce(s) Supporting Document(s) CBC W/Automated Diff Laboratory test result [facility] ([place] Is patient fasting? N WBC 4.4 10^3/uL 4.2-11.0 [facility] ([facility] Is patient fasting? N RBC 5.18 10^6/uL 4.50-6.30 [facility] Is patient fasting? N Hemoglobin 15.3 g/dL 14.0-16.0 [facility] ([facility] Is patient fasting? N MCV 90.2 fL 80.0-94.0 [facility] ([facility] Is patient fasting? N Hematocrit 46.7 % 41.0-51.0 [facility] Is patient fasting? N MCHC 32.8 g/dL 31.0-36.0 [facility] ([facility] Is patient fasting? N MCH 29.5 pg 27.0-34.0 [facility] ([facility] Is patient fasting? N RDW 12.7 % 11.5-14.8 [facility] Is patient fasting? N Platelets 301 10^3/uL 150-450 [facility] ([facility] Is patient fasting? N MPV 9.1 fL 7.4-10.4 [facility] Is patient fasting? N Lymph 23.0 % 25.0-40.0 Below low normal [facility] ( [facility] Is patient fasting? N Neut 64.6 % 37.0-80.0 [facility] Is patient fasting? N [place] 9.2 % 3.0-8.0 Above high normal [facility] ([facility] Is patient fasting? N Eos 2.8 % 0.0-7.0 [facility] ([facility] Is patient fasting? N %Ig 0.2 % 0.0-0.0 Above high normal [facility] ([facility] Is patient fasting? N Baso 0.2 % 0.0-2.0 [facility] ([facility] Is patient fasting? N #Lymph 1.00 10^3/uL 0.60-3.40 [facility] ([facility] Is patient fasting? N %NRBC 0.0 % 0.0-0.0 [facility] ([facility] Is patient fasting? N #Neut 2.81 10^3/uL 2.00-6.90 [facility] ([facility] [place] [facility] Is patient fasting? N #Eos 0.12 10^3/uL 0.00-0.70 [facility] ([facility] [place] [facility] Is patient fasting? N #[place] 0.40 10^3/uL 0.00-0.90 [facility] ([facility] [place] Is patient fasting? N #Ig 0.01 10^3/uL 0.00-0.10 [facility] ([facility] [place] Is patient fasting? N #Baso 0.01 10^3/uL 0.00-0.20 [facility] ([facility] [place] Is patient fasting? N Manual Diff Laboratory test result M EDENT ([place] Is patient fasting? N #NRBC 0.00 10^3/uL 0.00-0.00 [facility] ([facility] [place] [facility] Is patient fasting? N RBC Morph Laboratory test result ME DENT ([place] Is patient fasting? N ID Date Data Source [id number] 05/27/2020 08:30:00 PM EST [facility] Name Value Range Interpretation Code Description Data Allyson rce(s) Supporting Document(s) CVE PANEL [facility] al LIPID PANEL Cholesterol [Mass/volume] in Serum or Plasma 209 MG/DL 131 - 200 [facility] Deprecated Triglyceride [Mass/volume] in Serum or Plasma 179 MG/DL 3 5 - 160 [facility] HDL 37 MG/DL 29 - 86 [facility] Cholesterol in LDL [Mass/volume] in Serum or Plasma by Direc t assay 141 mg/dL 65 - 175 [facility] Cholesterol.total/Cholesterol in HDL [Mass Ratio] in Serum o r Plasma 5.6 3.4 - 4.9 H [facility] LDL/HDL 3.81 1.00 - 3.55 H [facility] ital CVE RISK CHOL/HDL LDL/HDLMEN: 1/2 AVERAGE 3.43 1.00 AVERAGE 4.97 3.55 2X AVERAGE 9.55 6.25 3X AVERAGE 23.99 7.99WOMEN: 1/2 AVERAGE 3.27 1.47 AVERAGE 4.44 3.22 2X AVERAGE 7.05 5.03 3X AVERAGE 11.04 6.14 ID Date Data Source [id number] 05/27/2020 08:30:00 PM [facility] Name Value Range Interpretation Code Description Data Allyson rce(s) Supporting Document(s) Amylase [Enzymatic activity/volume] in Serum or Plasma 97 U/L 30 - 110 [facility] ID Date Data Source [id number] 05/27/2020 08:30:00 PM EST [facility] Name Value Range Interpretation Code Description Data Allyson rce(s) Supporting Document(s) Lipase [Enzymatic activity/volume] in Serum or Plasma 62 U/L 13 - 60 H [facility] ID Date Data Source [id number] 05/27/2020 08:30:00 PM [facility] Name Value Range Interpretation Code Description Data Allyson rce(s) Supporting Document(s) COMPREHENSIVE METABOLIC PANEL [facility] COMPREHENSIVE METABOLIC PANEL Sodium [Moles/volume] in Serum or Plasma 140 mEq/L 134 - 153 [facility] Potassium [Moles/volume] in Serum or Plasma 4.3 mEq/L 3.6 - 5.0 [facility] Chloride [Moles/volume] in Serum or Plasma 102 mEq/L 98 - 107 [facility] Carbon dioxide, total [Moles/volume] in Serum or Plasma 31 MEQ/L 22 - 30 [facility] Glucose [Mass/volume] in Serum or Plasma 98 MG/DL 65 - 110 [facility] BUN 11 MG/DL 7 - 21 [facility] Creatinine [Mass/volume] in Serum or Plasma 0.8 MG/DL 0.7 - 1.5 [facility] BUN/CREAT 14 8 - 27 [facility] Protein [Mass/volume] in Serum or Plasma 6.6 G/DL 6.3 - 8.2 [facility] Albumin [Mass/volume] in Serum or Plasma 4.5 G/DL 3.9 - 5.0 [facility] Globulin [Mass/volume] in Serum by calculation 2.1 GM/DL 2.4 - 3.2 L [facility] A/G RATIO 2.1 0.8 - 2.0 H [facility] Calcium [Mass/volume] in Serum or Plasma 9.3 MG/DL 8.4 - 10.2 [facility] Bilirubin.total [Mass/volume] in Serum or Plasma <0.7 MG/DL 0.2 - 1.3 [facility] Alkaline phosphatase [Enzymatic activity/volume] in Serum or Plasma 71 U/L 38 - 126 [facility] Aspartate aminotransferase [Enzymatic activity/volume] in Serum or Plasma 26 U/L 5 - 40 [facility] Alanine aminotransferase [Enzymatic activity/volume] in Seru m or Plasma 11 U/L 7 - 56 [facility] Anion gap 3 in Serum or Plasma 7.0 mmol/L 8.0 - 16.0 L [facility] 55 [facility] >60 mL/min [facility] ital AFR AMER GFR >60 mL/min [facility] Ho spital Male GFR In terprentation 20-49 yrs >60 mL/min Normal 50-59 yrs >56 mL/min Normal 60-69 yrs >49 mL/min Normal 70-79yrs >42 mL/min Normal 80 and above >35 mL/min Normal Female GFR Interpretation 20-39 yrs >60 mL/min Normal 40-49 yrs >58 mL/min Normal 50-59 yrs >51 mL/min Normal 60-69 yrs >45 mL/min Normal 70-79 yrs >39 mL/min Normal 80 and above >32 mL/min Normal ID Date Data Source [id number] 05/27/2020 08:00:00 PM EST [facility] Name Value Range Interpretation Code Description Data Allyson rce(s) Supporting Document(s) CBC W/AUTOMATED DIFF [facility] COMPLETE BLOOD COUNT Leukocytes [#/volume] in Blood by Automated count 4.4 10^3/uL 4.2 - 1 1.0 [facility] Erythrocytes [#/volume] in Blood by Automated count 5.18 10^6/uL 4. 50 - 6.30 [facility] Hemoglobin [Mass/volume] in Blood 15.3 g/dL 14.0 - 16.0 [facility] Hematocrit [Volume Fraction] of Blood by Automated count 46.7 % 4 1.0 - 51.0 [facility] Erythrocyte mean corpuscular volume [Entitic volume] by Auto mated count 90.2 fL 80.0 - 94.0 [facility] Erythrocyte mean corpuscular hemoglobin [Entitic mass] by Automated count 29.5 pg 27.0 - 34.0 [facility] Erythrocyte mean corpuscular hemoglobin concentration [Mass/volume] by Automated count 32.8 g/dL 31.0 - 36.0 [facility] Erythrocyte distribution width [Ratio] by Automated count 12.7 % 11.5 - 14.8 [facility] Platelets [#/volume] in Blood by Automated count 301 10^3/uL 150 - 45 0 [facility] Platelet mean volume [Entitic volume] in Blood by Automated count 9.1 fL 7.4 - 10.4 [facility] Neutrophils/100 leukocytes in Blood by Automated count 64.6 % 37. 0 - 80.0 [facility] Lymphocytes/100 leukocytes in Blood by Manual count 23.0 % 25.0 - 40.0 L [facility] Monocytes/100 leukocytes in Blood by Automated count 9.2 % 3.0 - 8.0 H [facility] Eosinophils/100 leukocytes in Blood by Automated count 2.8 % 0.0 - 7.0 [facility] Basophils/100 leukocytes in Blood by Automated count 0.2 % 0.0 - 2.0 [facility] %IG 0.2 % 0.0 - 0.0 [facility] %[facility]BC 0.0 % 0.0 - 0.0 [facility] Neutrophils [#/volume] in Blood by Automated count 2.81 10^3/uL 2.00 - 6.90 [facility] Lymphocytes [#/volume] in Blood by Automated count 1.00 10^3/uL 0.60 - 3.40 [facility] Monocytes [#/volume] in Blood by Automated count 0.40 10^3/uL 0.00 - 0.90 [facility] Eosinophils [#/volume] in Blood by Automated count 0.12 10^3/uL 0.00 - 0.70 [facility] Basophils [#/volume] in Blood by Automated count 0.01 10^3/uL 0.00 - 0.20 [facility] #IG 0.01 10^3/uL 0.00 - 0.10 [facility] H ospital #NRBC 0.00 10^3/uL 0.00 - 0.00 [facility] ospital MANUAL DIFF NOT INDICATED [facility] RBC MORPH NOT INDICATED [facility] Procedure Social History Code Duration Value Status Description Data Source(s ) Smoking 09/25/2020 12:00:00 AM EDT Patient has never smoked co mpleted Patient has never smoked [facility] ([facility] Vital Signs ID Date Data Source [id number] Name Value Range Interpretation Code Description Data Source(s) Systolic blood pressure 152 mm[Hg] 152 mm[Hg] M EDENT ([facility]) Diastolic blood pressure 88 mm[Hg] 88 mm[Hg] [facility] ([facility]) Body temperature 98.7 [degF] 98.7 [degF] [facility] Body height 66 [in_i] 66 [in_i] [facility] ([facility]) 5'6" Body weight 146.25 [lb_av] 146.25 [lb_av] [facility] Body mass index (BMI) [Ratio] 23.6 kg/m2 23.6 k g/m2 [facility] ([facility]) [place] body weight 142 [lb_av] 142 [lb_av] MED[facility] T ([facility]) Body weight 66.339 kg 66.339 kg [facility] ([facility]) Body surface area Derived from formula 1.75 m2 1.75 m2 [facility] ([facility]) Body weight 140.00 [lb_av] 140.00 [lb_av] MEDEN T ([facility] Heart rate 84 /min 84 /min [facility] ([facility] Respiratory rate 16 /min 16 /min [facility] ( [facility] Body height 66 [in_i] 66 [in_i] [facility] 5'6" Body mass index (BMI) [Ratio] 22.6 kg/m2 22.6 k g/m2 [facility] ([facility] Oxygen saturation in Arterial blood by Pulse oximetry 99 % 99 % [facility] ([facility] [place] body weight 142 [lb_av] 142 [lb_av] MEDEN T ([facility] Systolic blood pressure 118 mm[Hg] 118 mm[Hg] M EDENT ([facility] Diastolic blood pressure 86 mm[Hg] 86 mm[Hg] [facility] ([facility] Body temperature 98.1 [degF] 98.1 [degF] [facility] ([facility] Systolic blood pressure 134 mm[Hg] 134 mm[Hg] M EDENT ([facility] Diastolic blood pressure 88 mm[Hg] 88 mm[Hg] [facility] ([facility] Body temperature 97.9 [degF] 97.9 [degF] [facility] ([facility] Heart rate 82 /min 82 /min [facility] ([facility] Respiratory rate 16 /min 16 /min [facility] ( [facility] Body height 66 [in_i] 66 [in_i] [facility] 5'6" [place] body weight 142 [lb_av] 142 [lb_av] MEDEN T ([facility] Body mass index (BMI) [Ratio] 22.6 kg/m2 22.6 k g/m2 [facility] ([facility] Oxygen saturation in Arterial blood by Pulse oximetry 98 % 98 % [facility] ([facility] Body weight 140.00 [lb_av] 140.00 [lb_av] MEDEN T ([facility] Body weight 141.00 [lb_av] 141.00 [lb_av] MEDEN T ([facility], ) Body mass index (BMI) [Ratio] 22.8 kg/m2 22.8 k g/m2 [facility] ([facility]) [place] body weight 142 [lb_av] 142 [lb_av] MEDEN T ([facility]) Body weight 63.958 kg 63.958 kg [facility] ([facility]) Body surface area Derived from formula 1.72 m2 1.72 m2 [facility] Body height 66 [in_i] 66 [in_i] [facility] ([facility]) 5'6" Body mass index (BMI) [Ratio] 22.8 kg/m2 22.8 k g/m2 [facility] ([facility]) Systolic blood pressure 110 mm[Hg] 110 mm[Hg] M EDENT ([facility]) Diastolic blood pressure 70 mm[Hg] 70 mm[Hg] [facility] ([facility]) Body height 66 [in_i] 66 [in_i] [facility] ([facility]) 5'6" Body weight 141.00 [lb_av] 141.00 [lb_av] MEDEN T ([facility]) [place] body weight 142 [lb_av] 142 [lb_av] MEDEN T ([facility]) Body weight 63.958 kg 63.958 kg [facility] ([facility]) Body surface area Derived from formula 1.72 m2 1.72 m2 [facility] ([facility]) Respiratory rate 16 /min 16 /min [facility] ( [facility] Body height 66 [in_i] 66 [in_i] [facility] ([facility] 5'6" Systolic blood pressure 110 mm[Hg] 110 mm[Hg] M EDENT ([facility] Diastolic blood pressure 80 mm[Hg] 80 mm[Hg] [facility] ([facility] Body temperature 97.5 [degF] 97.5 [degF] [facility] ([facility] Heart rate 91 /min 91 /min [facility] ([facility] Body weight 134.00 [lb_av] 134.00 [lb_av] MEDEN T ([facility] [place] body weight 142 [lb_av] 142 [lb_av] MEDEN T ([facility] Body mass index (BMI) [Ratio] 21.6 kg/m2 21.6 k g/m2 [facility] ([facility] Oxygen saturation in Arterial blood by Pulse oximetry 98 % 98 % MEDBEL ([facility] Systolic blood pressure 126 mm[Hg] 126 mm[Hg] M EDENT ([facility] Diastolic blood pressure 72 mm[Hg] 72 mm[Hg] [facility] ([facility] Body temperature 97.3 [degF] 97.3 [degF] [facility] ([facility] Heart rate 86 /min 86 /min MEDBEL ([facility] Respiratory rate 16 /min 16 /min MEDBEL ( [facility] Body height 66 [in_i] 66 [in_i] MEDENT ([facility] 5'6" Body weight 138.00 [lb_av] 138.00 [lb_av] [facility] T ([facility] [facility] [place] body weight 142 [lb_av] 142 [lb_av] MEDEN T ([facility] Body mass index (BMI) [Ratio] 22.3 kg/m2 22.3 k g/m2 MEDBEL ([facility] Oxygen saturation in Arterial blood by Pulse oximetry 99 % 99 % ROLO ([facility] ID Date Data Source [id number] 11/19/2020 04:35:44 PM EDT [facility] Name Value Range Interpretation Code Description Data Source(s) WEIGHT RECORDED 140.00 pounds 140.00 pounds [facility] Height 66 Inches 066 Inches [facility]
[2021-05-21] MEDS ORDERED: fentaNYL 100 MCG/2 ML INJECTION (J3010) As Ordered ONE (12:15)
[2021-05-21] MEDS ORDERED: propofoL 200 MG/20 ML VIAL As Ordered ONE (12:16)
[2021-05-21] MEDS ORDERED: LIDOCAINE 1% MDV 20ML VIAL As Ordered ONE (12:16)
[2021-05-21 13:55] VITALS: BP 140/96
--- NOTE | 2021-05-21 14:02 | ROOR ---
Patient Name: Richie Corrales Procedure Date: 05/21/2021 12:48 PM Date of : 1965 Age: 56 Room: [facility] Gender: Male Note Status: Finalized Procedure: Upper GI endoscopy Indications: Epigastric abdominal pain, Suspected esophageal reflux Providers: Vitaliy Doshi MD Referring MD: THERESA FU DO Requesting Provider: Medicines: Monitored Anesthesia Care Complications: No immediate complications. Procedure: Pre-Anesthesia Assessment: - Prior to the procedure, a History and Physical was performed, and patient medications and allergies were reviewed. The patient is competent. The risks and benefits of the procedure and the sedation options and risks were discussed with the patient. All questions were answered and informed consent was obtained. Patient identification and proposed procedure were verified by the physician, the nurse and the wastewater treatment engineer in the procedure room. Mental Status Examination: alert and oriented. Prophylactic Antibiotics: The patient does not require prophylactic antibiotics. Prior Anticoagulants: The patient has taken no previous anticoagulant or antiplatelet agents. ASA Grade Assessment: II - A patient with mild systemic disease. After reviewing the risks and benefits, the patient was deemed in satisfactory condition to undergo the procedure. The anesthesia plan was to use monitored anesthesia care (MAC). Immediately prior to administration of medications, the patient was re-assessed for adequacy to receive sedatives. The heart rate, respiratory rate, oxygen saturations, blood pressure, adequacy of pulmonary ventilation, and response to care were monitored throughout the procedure. The physical status of the patient was re-assessed after the procedure. The Endoscope was introduced through the mouth, and advanced to the second part of duodenum. The upper GI endoscopy was accomplished without difficulty. The patient tolerated the procedure well. Findings: The examined esophagus was normal. A 1 cm hiatal hernia was present. A few localized, small non-bleeding erosions were found in the prepyloric region of the stomach. There were no stigmata of recent bleeding. The exam of the stomach was otherwise normal. The first portion of the duodenum and second portion of the duodenum were normal. Impression: - Normal esophagus. - 1 cm hiatal hernia. - Non-bleeding erosive gastropathy. - Normal first portion of the duodenum and second portion of the duodenum. - No specimens collected. Recommendation: - Discharge patient to home. - Resume previous diet. - Continue present medications. Procedure Code(s): --- Professional --- 77624, Esophagogastroduodenoscopy, flexible, transoral; diagnostic, including collection of specimen(s) by brushing or washing, when performed (separate procedure) Diagnosis Code(s): --- Professional --- K44.9, Diaphragmatic hernia without obstruction or gangrene K31.89, Other diseases of stomach and duodenum R10.13, Epigastric pain CPT copyright 2019 [employer]. All rights reserved. The codes documented in this report are preliminary and upon manager of data review may be revised to meet current compliance requirements. Vitaliy Doshi MD Vitaliy Doshi MD 05/21/2021 2:01:42 PM Electronically signed by Vitaliy Doshi MD Number of Addenda: 0 Note Initiated On: 05/21/2021 12:48 PM Estimated Blood Loss: Estimated blood loss: none.
[2021-05-21] MEDS ORDERED: OMEP40CA4 PO (15:05)
== END 2021-05-21 13:56 | disposition home or self-care (01) ==
LOC: M OPP 11:35
PROVIDERS: ATTEND Surgery
DX: K44.9 Diaphragmatic hernia without obstruction or gangrene (principal); K31.89 Other diseases of stomach and duodenum; R10.13 Epigastric pain; Z79.899 Other long term (current) drug therapy; Z88.1 Allergy status to other antibiotic agents; Z87.891 Personal history of nicotine dependence; Z83.71 Family history of colonic polyps
CPT/HCPCS: 43235; J3010

== ENCOUNTER 2022-08-01 17:41 | Emergency (ER) | payer OTHER ==
[~2022-08-01] VITALS: Ht 167.6 cm; Wt 67.2 kg
[~2022-08-01 17:41] MED LIST changes: -NS 1,000 ML IV ONE; -OMEP-221 PO; +OMEP40CA4 PO; +OMEP40CA5 PO
[2022-08-01] MEDS ORDERED: NS 500 ML IV ONE (18:05)
[2022-08-01] MEDS ORDERED: ONDANSETRON 4MG 2ML VIAL IV ONE (18:10)
[2022-08-01] MEDS ORDERED: MORPHINE 4 MG/ML 1ML VIAL IV ONE (18:10)
[2022-08-01 18:42] LABS: BASO % 0.4 % (0.0-1.0); EOS # 0.4 10^3/uL (0.0-0.5); EOS % 5.1 % (0.0-3.0); HEMATOCRIT 49.9 % (42.0-52.0); HEMOGLOBIN 15.9 g/dl (13.5-17.5); LYMPH # 1.7 10^3/uL (1.5-5.0); LYMPH % 20.7 % (24.0-44.0); MEAN CORPUSCULAR HEMOGLOBIN 29.5 pg (27.0-33.0); MEAN CORPUSCULAR HGB CONC 31.9 g/dl (32.0-36.5); MEAN CORPUSCULAR VOLUME 92.6 fl (80.0-96.0); MONO # 0.4 10^3/uL (0.0-0.8); NEUTROPHILS # 5.8 10^3/uL (1.5-8.5); NEUTROPHILS % 68.7 % (36.0-66.0); PLATELET COUNT, AUTOMATED 264 10^3/uL (150-450); RED BLOOD COUNT 5.39 10^6/uL (4.30-6.10); WHITE BLOOD COUNT 8.4 10^3/uL (4.0-10.0)
[2022-08-01] MEDS ORDERED: ISOVUE-370 76% 100ML VIAL As Ordered ONE (18:46)
[2022-08-01 18:58] LABS: LIPASE 43 U/L (12-53)
[2022-08-01 18:59] LABS: AMYLASE 122 U/L (30-118)
[2022-08-01 19:00] LABS: ALBUMIN 4.1 G/DL (3.2-5.2); ALKALINE PHOSPHATASE 72 U/L (46-116); ALT/SGPT 18 U/L (7.0-40); AST/SGOT 31 U/L (<34); BILIRUBIN,DIRECT < 0.1 MG/DL (<0.4); BILIRUBIN,TOTAL 0.3 MG/DL (0.3-1.2); TOTAL PROTEIN 6.7 G/DL (5.7-8.2)
[2022-08-01] MEDS ORDERED: MORPHINE 4 MG/ML 1ML VIAL IV PRN (19:40)
[2022-08-01 19:56] LABS: RSV AMPLIFICATION NEGATIVE (NEGATIVE)
[2022-08-01] MEDS ORDERED: TAMSULOSIN 0.4 MG CAP PO ONE (20:20)
[2022-08-01] MEDS ORDERED: OXYCODONE/APAP 5MG/325MG(HOME DOSE PACK) PO ONE (21:15)
[2022-08-01] MEDS ORDERED: CEPHALEXIN 500 MG CAP PO ONE (21:15)
[2022-08-01] MEDS ORDERED: KETOROLAC 30 MG/ML 1ML VIAL IV ONE (21:15)
[2022-08-01] MEDS ORDERED: CEPH500C PO (21:17)
[2022-08-01] MEDS ORDERED: PERC5TAB12 PO (21:17)
[2022-08-01] MEDS ORDERED: FLOM0.4C39 PO (21:17)
[2022-08-01 21:37] VITALS: BP 149/105
== END 2022-08-01 21:37 | disposition home or self-care (01) ==
LOC: M ED 17:41
DX: N20.1 Calculus of ureter (principal); E11.9 Type 2 diabetes mellitus without complications; E78.5 Hyperlipidemia, unspecified; Z79.2 Long term (current) use of antibiotics; Z79.83 Long term (current) use of bisphosphonates; Z79.899 Other long term (current) drug therapy
CPT/HCPCS: 71045; 74178; 80047; 80076; 81002; 82150; 83605; 83690; 85025; 87040; 87631; 93005; 93041; 96374; 96375; 99284; J2405

== ENCOUNTER → 2022-11-16 | Day surgery (SDC) | payer OTHER ==
[~2022-11-16] VITALS: Ht 167.6 cm; Wt 64.4 kg
[~2022-11-16] MED LIST changes: +CEPH500C PO; +FLOM0.4C39 PO; +FLUT50SP17 NARES; -FLUTISP NARES; +LIDOCAINE 2% 100MG/5ML SDV (FOR ANES.) As Ordered ONE; +NS 1,000 ML IV ONE; +OMEG10002 PO; +PERC5TAB12 PO; +TURM500T PO; +propofoL 200 MG/20 ML VIAL As Ordered ONE
[2022-11-16 13:47] VITALS: BP 113/70
== END | disposition home or self-care (01) ==
LOC: M OPP 11:11
PROVIDERS: ATTEND Internal Medicine Gastroenterology
DX: K31.89 Other diseases of stomach and duodenum (principal); K44.9 Diaphragmatic hernia without obstruction or gangrene; R12 Heartburn; Z88.1 Allergy status to other antibiotic agents

== ENCOUNTER 2023-02-01 08:43 | Day surgery (SDC) | payer OTHER ==
[~2023-02-01] VITALS: Ht 167.6 cm; Wt 63.5 kg
[~2023-02-01 08:43] MED LIST changes: -LIDOCAINE 2% 100MG/5ML SDV (FOR ANES.) As Ordered ONE
[2023-02-01] MEDS ORDERED: GLYCOPYRROLATE INJ 0.2 MG/ML 2 ML VIAL As Ordered ONE (10:56)
[2023-02-01] MEDS ORDERED: propofoL 200 MG/20 ML VIAL As Ordered ONE (10:56)
[2023-02-01 11:02] VITALS: TEMP 96.2
[2023-02-01 11:40] VITALS: BP 128/94; O2SAT 100
== END 2023-02-01 11:42 | disposition home or self-care (01) ==
LOC: M OPP 08:43
PROVIDERS: ATTEND Internal Medicine Gastroenterology
DX: Z12.11 Encounter for screening for malignant neoplasm of colon (principal); Z86.010 Personal history of colon polyps; D12.2 Benign neoplasm of ascending colon; D12.4 Benign neoplasm of descending colon; K57.30 Diverticulosis of large intestine without perforation or abscess without bleeding; K64.8 Other hemorrhoids; Z79.02 Long term (current) use of antithrombotics/antiplatelets; Z79.1 Long term (current) use of non-steroidal anti-inflammatories (NSAID); Z79.899 Other long term (current) drug therapy; Z88.1 Allergy status to other antibiotic agents; Z91.018 Allergy to other foods; Z91.048 Other nonmedicinal substance allergy status

== ENCOUNTER → 2023-04-26 | Outpatient (CLI) | payer OTHER ==
[~2023-04-26] MED LIST changes: -NS 1,000 ML IV ONE; -propofoL 200 MG/20 ML VIAL As Ordered ONE
== END ==
LOC: M RAD 08:38
PROVIDERS: ATTEND Physician Assistant Medical
DX: R10.10 Upper abdominal pain, unspecified (principal); K76.0 Fatty (change of) liver, not elsewhere classified

== ENCOUNTER 2023-07-04 20:16 | Emergency (ER) | payer OTHER ==
[~2023-07-04] VITALS: Ht 167.6 cm; Wt 64.4 kg
[~2023-07-04 20:16] MED LIST changes: -FLUT50SP17 NARES; +FLUTISP NARES
[2023-07-04 21:28] LABS: BASO % 0.3 % (0.0-1.0); EOS # 0.4 10^3/uL (0.0-0.5); EOS % 4.7 % (0.0-3.0); HEMATOCRIT 45.3 % (42.0-52.0); HEMOGLOBIN 15.2 g/dl (13.5-17.5); LYMPH # 1.3 10^3/uL (1.5-5.0); LYMPH % 16.7 % (24.0-44.0); MEAN CORPUSCULAR HGB CONC 33.6 g/dl (32.0-36.5); MEAN CORPUSCULAR VOLUME 89.5 fl (80.0-96.0); MONO # 0.5 10^3/uL (0.0-0.8); MONO % 6.4 % (2.0-8.0); NEUTROPHILS # 5.6 10^3/uL (1.5-8.5); NEUTROPHILS % 71.6 % (36.0-66.0); PLATELET COUNT, AUTOMATED 243 10^3/uL (150-450); RED BLOOD COUNT 5.06 10^6/uL (4.30-6.10); WHITE BLOOD COUNT 7.8 10^3/uL (4.0-10.0)
[2023-07-04 21:54] LABS: ALKALINE PHOSPHATASE 73 U/L (46-116); ALT/SGPT 11 U/L (7.0-40); AST/SGOT 23 U/L (<34); BILIRUBIN,TOTAL 0.4 MG/DL (0.3-1.2); BLOOD UREA NITROGEN 17 MG/DL (9-23); CARBON DIOXIDE LEVEL 27 MMOL/L (20-31); CHLORIDE LEVEL 105 MMOL/L (98-107); CREATININE FOR GFR 0.81 MG/DL (0.70-1.30); GLOMERULAR FILTRATION RATE > 60.0 (>56); GLUCOSE, FASTING 106 MG/DL (60-100); POTASSIUM SERUM 4.2 MMOL/L (3.5-5.1); SODIUM LEVEL 139 MMOL/L (136-145); TOTAL PROTEIN 6.6 G/DL (5.7-8.2)
[2023-07-04] MEDS ORDERED: NS 1,000 ML IV ONE (22:00)
[2023-07-04] MEDS ORDERED: MECLIZINE 25 MG TABLET PO ONE (22:00)
[2023-07-04] MEDS ORDERED: KETOROLAC 30 MG/ML 1ML VIAL IV ONE (22:00)
[2023-07-05] MEDS ORDERED: MECL-209 PO (00:22)
[2023-07-05 00:31] VITALS: O2SAT 96
[2023-07-05 00:40] VITALS: BP 154/85; TEMP 98.2
== END 2023-07-05 00:40 | disposition home or self-care (01) ==
LOC: M ED 20:16
DX: R42 Dizziness and giddiness (principal); K21.9 Gastro-esophageal reflux disease without esophagitis; E78.5 Hyperlipidemia, unspecified; Z91.018 Allergy to other foods; Z91.048 Other nonmedicinal substance allergy status; Z79.83 Long term (current) use of bisphosphonates; Z79.899 Other long term (current) drug therapy
CPT/HCPCS: 36415; 70450; 80053; 85025; 93005; 96361; 96374; 99284; J1885